=== PATIENT | female | born 1990 | race Caucasian/White ===

== ENCOUNTER 2019-03-15 15:58 | Emergency (ER) | payer OTHER ==
[2019-03-15 16:08] VITALS: BP 123/73; TEMP 98.5; BMI 23.5
--- NOTE | 2019-03-15 16:09 | PDOC ---
Rapid Medical Evaluation Time Seen by Provider: 03/15/19 16:03 Medical Evaluation: Allergies Allergy/AdvReac Type Severity Reaction Status Date / Time No Known Allergies Allergy Verified 03/15/19 16:04 03/15/19 16:04 I have performed a brief in-person evaluation of this patient. The patient presents with a chief complaint of: Dizziness w/ "sweet taste" in mouth 3 hrs ago. Also reports polyuria and nausea, no vomiting, abd pain or SOB. FS read HI at home today w/ large amount of ketones on home monitor. H/o IDDM, DKA Pertinent physical exam findings:Stable and well waqas I have ordered the following:labs The patient will proceed to the ED for further evaluation. Discharge Disposition - Diagnosis Hyperglycemia, Dizziness - Referrals - Patient Instructions - Post Discharge Activity
[2019-03-15] MEDS ORDERED: SODIUM CHLORIDE 0.9% 500 ML INFUS.BAG IV ONE (16:50)
--- NOTE | 2019-03-15 17:02 | PDOC ---
History of Present Illness - General Chief Complaint: Blood Sugar Problem Stated Complaint: HIGH BLOOD SUGAR Time Seen by Provider: 03/15/19 16:03 - History of Present Illness Initial Comments: 03/15/19 17:00 The patient is a 28 year old female with a PMH of Type I DM (diagnosed @ age 24 ) who presents stating she is not feeling well including nausea, having a funny taste in her mouth and increased urinary urgency. States she checked her BS at home and it read high and a test of her urine showed ketones. Patient has an insulin pump and follows with Dr. Sorensen (endocrinology) and Dr. Delacruz ( primary care). Notes she was evaluated at [facility] a few days previous for vaginal discharge and recieved a phone call today that she tested positive for gonorrhea and is requesting treatment. NKDA Surgical: none reported Social: denies toxic habits PMD: Dr. Bustillos Endocrinology: Dr. Sorensen As per EMR patient has not been evaluated in our ED on prior occasion. Past History - Past Medical History Allergies/Adverse Reactions: Allergies Allergy/AdvReac Type Severity Reaction Status Date / Time No Known Allergies Allergy Verified 03/15/19 16:04 COPD: No Diabetes: Yes (TYPE 1) - Immunization History Immunization Up to Date: Yes - Suicide/Smoking/Psychosocial Hx Smoking History: Never smoked Hx Alcohol Use: No Drug/Substance Use Hx: No Review of Systems - Review of Systems Constitutional: No: Chills, Fever HEENTM: No: Recent change in vision Respiratory: No: Cough, Shortness of Breath Cardiac (ROS): No: Chest Pain, Lightheadedness, Palpitations, Syncope ABD/GI: Yes: Nausea. No: Abdominal cramping *Physical Exam - Vital Signs Last Vital Signs Temp Pulse Resp BP Pulse Ox 98.5 F 107 H 18 123/73 99 03/15/19 16:04 03/15/19 16:04 03/15/19 16:04 03/15/19 16:04 03/15/19 16:04 - Physical Exam General Appearance: Yes: Nourished, Appropriately Dressed HEENT: positive: Normal Voice, Hearing Grossly Normal Neck: positive: Trachea midline, Supple Respiratory/Chest: positive: Lungs Clear, Normal Breath Sounds Cardiovascular: positive: S1, S2. negative: Edema, JVD, Murmur Vascular Pulses: Dorsalis-Pedis (R): 2+, Doralis-Pedis (L): 2+ Gastrointestinal/Abdominal: positive: Normal Bowel Sounds, Soft. negative: Guarding, Rebound, Tenderness, Hernia, Mass Musculoskeletal: negative: CVA Tenderness (R), CVA Tenderness (L) Extremity: positive: Normal Capillary Refill, Normal Inspection Integumentary: positive: Normal Color, Dry, Warm Neurologic: positive: paint maker II-XII NML intact, Fully Oriented, Alert ED Treatment Course - LABORATORY CBC & Chemistry Diagram: 03/15/19 17:02 03/15/19 17:02 - ADDITIONAL ORDERS Additional order review: Laboratory Results 03/15/19 16:53 POC Glucometer 396 03/15/19 16:53 POC Glucometer 396 Medical Decision Making - Medical Decision Making 03/15/19 17:05 28 year old female Type I DM with elevated blood sugar (>600) + nausea. Mildly tachycardic (HR 105), other VS unremarkable Repeat BS 396 in ED Will evaluate for DKA, and administer correction dose as per insulin pump (1 unit Humalog for every 70 units > 125) PLAN: Serum Acetone, CMP/CBC, VBG, UA; will treat for G/C as per patient request w/recent positive test Reassess 03/15/19 17:47 Patient changed insulin pump and administered correction dose G/C treatment pending UA shows 2+ glucose, 4+ ketones c/w hyperglycemia Trace Acetone, no AG - low clinical suspicion for DKA, cancelled VBG 03/15/19 18:54 VSS S/p correction dose repeat BS 230. At this time, patient safe for discharge home with instruction to repeat correction dose as necessary. Counseled to f/u with endocrinology and return to ED if hyperglycemia persists. *DC/Admit/Observation/Transfer Diagnosis at time of Disposition: Hyperglycemia - Discharge Dispostion Disposition: HOME Condition at time of disposition: Good Decision to Admit order: No - Referrals - Patient Instructions Printed Discharge Instructions: DI for Hyperglycemia -- Adult Additional Instructions: Please monitor your insulin closely and administer the correction dose as needed. Follow up with your inside sales account executive in the next 3 days. You were treated today for Gonorrhea and you should follow-up with [facility] as previously scheduled. Return to the Emergency Department if your blood sugar remains elevated or for any new/worsening/concerning symptoms. - Post Discharge Activity
[2019-03-15 17:20] LABS: BASO % 0.6 % (0-2.0); EOS % 0.3 % (0-4.5); HEMATOCRIT 39.1 % (32.4-45.2); HEMOGLOBIN 13.1 GM/dL (10.7-15.3); LYMPH % 25.1 % (8-40); MCH 27.6 pg (25.7-33.7); MCHC 33.4 g/dl (32.0-36.0); MEAN CELL VOLUME 82.7 fl (80-96); MEAN PLT VOLUME 8.6 fl (7.5-11.1); MONO % 8.3 % (3.8-10.2); NEUT % 65.7 % (42.8-82.8); PLATELET COUNT 217 K/MM3 (134-434); RBC 4.74 M/mm3 (3.60-5.2); RDW 13.5 % (11.6-15.6); WHITE BLOOD COUNT 4.8 K/mm3 (4.0-10.0)
[2019-03-15] MEDS ORDERED: AZITHROMYCIN 500 MG TABLET PO ONE (17:47)
--- NOTE | 2019-03-15 17:56 | PDOC ---
Documentation entered by Ivonne Gibbs SCRIBE, acting as scribe for Aster Bridges MD. Aster Bridges MD: This documentation has been prepared by the Sai darby Brenda, SCRIBE, under my direction and personally reviewed by me in its entirety. I confirm that the documentation accurately reflects all work, treatment, procedures, and medical decision making performed by me. Attending Attestation - Resident Resident Name: Maddison Lloyd - ED Attending Attestation I have performed the following: I have examined & evaluated the patient, The case was reviewed & discussed with the resident, I agree w/resident's findings & plan, Exceptions are as noted - HPI HPI: 03/15/19 17:28 The patient is a 28 year old female, with a significant PMH of IDDM (diagnosed at age 24 - has insulin pump) who presents to the emergency department complaining of feeling ill accompanied by nausea. The patient reports having a funny taste in her mouth and increased urinary urgency. As per patient, due to symptoms, she checked her blood sugar at home and noticed it to be high, and when testing her urine it showed Ketones. Patient reports experiencing vaginal discharge a few days ago, and followed up with [facility], who called her today to inform her that she has Gonorrhea. The patient denies chest pain, shortness of breath, headache and dizziness. Denies fever, chills, vomiting, diarrhea and constipation. Denies dysuria, frequency.. Allergies: NKA Social history: Not reported PCP: Dr. Delacruz Senior Cytotechnologist: Dr. Sorensen - Physicial Exam PE: GENERAL: Awake, alert, and fully oriented, in no acute distress HEAD: No signs of trauma EYES: PERRLA, EOMI, sclera anicteric, conjunctiva clear ENT: Auricles normal inspection, hearing grossly normal, nares patent, oropharynx clear without exudates. Moist mucosa NECK: Normal ROM, supple, no lymphadenopathy, JVD, or masses LUNGS: Breath sounds equal, clear to auscultation bilaterally. No wheezes, and no crackles HEART: Regular rate and rhythm, normal S1 and S2, no murmurs, rubs or gallops ABDOMEN: Soft, nontender, normoactive bowel sounds. No guarding, no rebound. No masses EXTREMITIES: Normal range of motion, no edema. No clubbing or cyanosis. No cords, erythema, or tenderness NEUROLOGICAL: Cranial nerves II through XII grossly intact. Normal speech, normal gait. Motor and sensation intact SKIN: Warm, dry, normal turgor, no rashes or lesions noted. - Medical Decision Making Pt states she changed her pump on arrival in the ED. Will have her self- administer her proper correction for the hyperglycemia to make sure that the insulin is working properly and it is not a bad vial. She takes 1 unit for every 70 points above 125. Pt gave herself 4U correction in ED. Will reassess after the correction. Will also treat her for gonorrhea, as she recently had a positive test.
[2019-03-15] MEDS ORDERED: AZITHROMYCIN 250 MG TABLET ONE (17:59)
[2019-03-15 18:07] LABS: URINE APPEARANCE CLEAR; URINE BILIRUBIN NEGATIVE (NEGATIVE); URINE COLOR YELLOW; URINE GLUCOSE (UA) 2+ (NEGATIVE); URINE KETONE 4+ (NEGATIVE); URINE LEUK ESTERASE NEGATIVE (NEGATIVE); URINE NITRITE NEGATIVE (NEGATIVE); URINE PROTEIN NEGATIVE (NEGATIVE); URINE UROBILINOGEN 0.2 mg/dL (0.2-1.0)
[2019-03-15 18:19] LABS: ALBUMIN 4.4 g/dl (3.4-5.0); BILIRUBIN,TOTAL 0.6 mg/dL (0.2-1); BLOOD UREA NITROGEN 20.1 mg/dL (7-18); CALCIUM 9.4 mg/dL (8.5-10.1); CREATININE 0.8 mg/dL (0.55-1.3); POTASSIUM 4.8 mmol/L (3.5-5.1); TOT PROT 7.4 g/dl (6.4-8.2)
[2019-03-15] MEDS ORDERED: cefTRIAXone SODIUM 1 GM VIAL ONE (19:41)
[2019-03-15] MEDS ORDERED: LIDOCAINE HCL 1%, 10 MG/ML (20ML VIAL) ONE (19:47)
[2019-03-15 20:15] VITALS: PULSE 94
== END 2019-03-15 20:34 | disposition home or self-care (01) ==
LOC: JER 15:58
PROC: 3E02329 Introduction of Other Anti-infective into Muscle, Percutaneous Approach (ICD-10-PCS; principal; 2019-03-15)
PROC: 3E0337Z Introduction of Electrolytic and Water Balance Substance into Peripheral Vein, Percutaneous Approach (ICD-10-PCS; 2019-03-15)
DX: E10.65 Type 1 diabetes mellitus with hyperglycemia (principal); Z79.4 Long term (current) use of insulin; A54.9 Gonococcal infection, unspecified
CPT/HCPCS: 36415; 80053; 81003; 82009; 82962; 84703; 85025; 99283-25

== ENCOUNTER 2019-03-16 00:46 | Emergency (ER) | payer OTHER ==
--- NOTE | 2019-03-16 01:17 | PDOC ---
History of Present Illness - General Stated Complaint: HIGH BLOOD SUGAR Time Seen by Provider: 03/16/19 01:14 - History of Present Illness Initial Comments: 03/16/19 01:15 CHIEF COMPLAINT: hyperglycemia HISTORY OF PRESENT ILLNESS: 28 yo F with hx of DM returns to ED after being discharged this evening with complaint that she is still not feeling right and is nauseous despite being treated in the ED for hyperglycemia. Patient reports cramping to her legs, which she felt prior to previous episode of DKA. She reports that she has been taking her insulin but her sugar does not appear to be trending down. 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 Patient states that she did use her insulin pump at home but again her sugar did not decrease. PCP: Dr. Monsalve Endocrinology: Dr. Sorensen PAST MEDICAL HISTORY: DMI FAMILY HISTORY: Denies SOCIAL HISTORY:Denies tobacco, alcohol, illicit drug use. SURGICAL HISTORY: Denies ALLERGIES: No known drug allergies REVIEW OF SYSTEMS General/Constitutional: Denies fever or chills. Denies weakness, weight change. HEENT: Denies change in vision. Denies ear pain or discharge. Denies sore throat. Cardiovascular: Denies chest pain or shortness of breath. Respiratory: Denies cough, wheezing, or hemoptysis. Gastrointestinal: Nausea. Denies vomiting, diarrhea or constipation. Denies rectal bleeding. Genitourinary: Denies dysuria, frequency, or change in urination. Musculoskeletal: Cramping to b/l legs. Skin and breasts: Denies rash or easy bruising. Neurologic: Denies headache, vertigo, loss of consciousness, or loss of sensation. PHYSICAL EXAM General Appearance: Well-appearing, appropriately dressed. No apparent distress , no intoxication. HEENT: EOMI, PERRLA, normal ENT inspection, normal voice, TMs normal, pharynx normal. No conjunctival pallor. No photophobia, scleral icterus. Neck: Supple. Trachea midline. No tenderness, rigidity, carotid bruit, stridor , lymphadenopathy, or thyromegaly. Respiratory/Chest: Lungs CTAB. No shortness of breath, chest tenderness, respiratory distress, accessory muscle use. No crackles, rales, rhonchi, stridor , wheezing, dullness Cardiovascular: RRR. S1, S2. No JVD, murmur, bradycardia, tachycardia. Vascular Pulses: Dorsalis-Pedis (R): 2+, Dorsalis-Pedis (L): 2+ Gastrointestinal/Abdominal: Normal bowel sounds. Abdomen soft, non-distended. No tenderness or rebound tenderness. No organomegaly, pulsatile mass, guarding , hernia, hepatomegaly, splenomegaly. Lymphatic: No adenopathy, tenderness. Musculoskeletal/Extremities: Normal inspection. FROM of all extremities, normal capillary refill. Pelvis Stable. No CVA tenderness. No tenderness to extremities, pedal edema, swelling, erythema or deformity. Integumentary: Appropriate color, dry, warm. No cyanosis, erythema, jaundice or rash Neurologic: forest firefighter II-XII intact. Fully oriented, alert. Appropriate mood/affect. Motor strength 5/5. No appreciable EOM palsy, facial droop or sensory deficit. Past History - Past Medical History Allergies/Adverse Reactions: Allergies Allergy/AdvReac Type Severity Reaction Status Date / Time No Known Allergies Allergy Verified 03/15/19 16:04 COPD: No Diabetes: Yes (TYPE 1) - Immunization History Immunization Up to Date: Yes - Suicide/Smoking/Psychosocial Hx Smoking History: Never smoked Hx Alcohol Use: No Drug/Substance Use Hx: No ED Treatment Course - LABORATORY CBC & Chemistry Diagram: 03/16/19 03:00 03/16/19 03:00 Medical Decision Making - Medical Decision Making 03/16/19 01:30 28 yo F with hx of DM returns to ED after being discharged this evening with complaint that she is still not feeling right and is nauseous despite being treated in the ED for hyperglycemia. -repeat cbc, cmp, acetone -fluids *DC/Admit/Observation/Transfer Diagnosis at time of Disposition: Hyperglycemia - Discharge Dispostion Disposition: HOME Condition at time of disposition: Stable - Referrals Referrals: ON STAFF,NOT [Primary Care Provider] - - Patient Instructions Printed Discharge Instructions: DI for Hyperglycemia -- Adult Additional Instructions: You were seen in the ER for high blood sugar. We did lab work on your blood, and we did not find any abnormalities concerning for a life-threatening condition. We gave you IV fluids, and you symptoms were under control by the end of your ER visit. You do not have DKA, but you are dehydrated and you need to drink plenty of fluids at home. After our assessment, we do not believe you are having a medical emergency at this time, and we believe you are safe to go home. Take your blood sugar measurement at lease once every 4 hours at home until you can follow up with your dairy science teacher, and take it whenever you have symptoms as well. Please follow up with your dairy science teacher and primary care provider in 1-3 days. Call their clinic as soon as possible, tell them you were seen in the ER, and tell them you need an appointment. If you have any new or worsening symptoms, especially another episode of fainting or feeling like you are about to faint, dizziness, palpitations, chest discomfort, shortness of breath, sweats, nausea, or other symptoms, please come back to the ER at any time (24 hours a day). Please hydrate well and eat well, and take any regular medications exactly as prescribed. If you are having severe or life threatening symptoms, or symptoms that make it unsafe to drive or have someone drive you, please call 911. - Post Discharge Activity
[2019-03-16] MEDS ORDERED: SODIUM CHLORIDE 0.9% 500 ML INFUS.BAG IV ONE (01:29)
[2019-03-16 03:01] VITALS: BP 108/69; PULSE 84; TEMP 98.1; BMI 27.3
--- NOTE | 2019-03-16 03:11 | PDOC ---
*Physical Exam - Vital Signs Last Vital Signs Temp Pulse Resp BP Pulse Ox 98.1 F 84 18 108/69 99 03/16/19 02:00 03/16/19 02:00 03/16/19 02:00 03/16/19 02:00 03/16/19 02:00 - Physical Exam Comments: 03/16/19 03:08 Patient's care was endorsed to me by Carmen Clayton at the end of her shift. Patient is a 28YOF with IDDM on insulin pump, who p/w nausea similar to her prior episodes of DKA. She was seen here in the ED this afternoon for blood sugar issues, and states now that her urine showed ketones and her BG was high at home. She is pending labs and serial BG then will decide dispo. ED Treatment Course - LABORATORY CBC & Chemistry Diagram: 03/16/19 03:00 03/16/19 03:00 - Medications Given in the ED: ED Medications Discontinued Medications Generic Name Dose Route Start Last Admin Trade Name Freq PRN Reason Stop Dose Admin Sodium Chloride 1,000 ml 03/16/19 01:29 03/16/19 02:40 Normal Saline - IV 03/16/19 01:30 1,000 ml ONCE ONE Administration Medical Decision Making - Medical Decision Making The patient's BUN is 30.1 at this time (compared with 20.1 on assessment the afternoon 03/15/19). However her Cr is not elevated and is unchanged from her assessment on 03/15/19. Her GFR is not reduced. On discussion with Dr. Morin this is likely dehydation and patient got 1 liter NS after labs drawn this visit. She had mild nausea afternoon of 03/15/19 but not currently nauseated, not vomiting, able to take PO liquids. Labs are not consistent with DKA or other serious sequelae of hyperglycemia. She after IVF she does not appear clinically dehydrated and she can take PO liquids in the ED. They are comfortable with this plan and will follow up with their PCP and teacher education instructor in 1-3 days. Specific return precautions are discussed and they will come back to the ER if necessary. *DC/Admit/Observation/Transfer Diagnosis at time of Disposition: Hyperglycemia - Discharge Dispostion Disposition: HOME Condition at time of disposition: Stable Decision to Admit order: No - Referrals Referrals: ON STAFF,NOT [Primary Care Provider] - - Patient Instructions Printed Discharge Instructions: DI for Hyperglycemia -- Adult Additional Instructions: You were seen in the ER for high blood sugar. We did lab work on your blood, and we did not find any abnormalities concerning for a life-threatening condition. We gave you IV fluids, and you symptoms were under control by the end of your ER visit. You do not have DKA, but you are dehydrated and you need to drink plenty of fluids at home. After our assessment, we do not believe you are having a medical emergency at this time, and we believe you are safe to go home. Take your blood sugar measurement at lease once every 4 hours at home until you can follow up with your teacher education instructor, and take it whenever you have symptoms as well. Please follow up with your teacher education instructor and primary care provider in 1-3 days. Call their clinic as soon as possible, tell them you were seen in the ER, and tell them you need an appointment. If you have any new or worsening symptoms, especially another episode of fainting or feeling like you are about to faint, dizziness, palpitations, chest discomfort, shortness of breath, sweats, nausea, or other symptoms, please come back to the ER at any time (24 hours a day). Please hydrate well and eat well, and take any regular medications exactly as prescribed. If you are having severe or life threatening symptoms, or symptoms that make it unsafe to drive or have someone drive you, please call 911. - Post Discharge Activity
[2019-03-16 03:17] LABS: HEMOGLOBIN 12.7 GM/dL (10.7-15.3); RDW 13.5 % (11.6-15.6); WHITE BLOOD COUNT 4.3 K/mm3 (4.0-10.0)
[2019-03-16 03:24] LABS: BASO % 0.9 % (0-2.0); EOS % 2.4 % (0-4.5); HEMATOCRIT 38.1 % (32.4-45.2); LYMPH % 34.1 % (8-40); MCH 27.5 pg (25.7-33.7); MCHC 33.4 g/dl (32.0-36.0); MEAN CELL VOLUME 82.2 fl (80-96); MEAN PLT VOLUME 8.9 fl (7.5-11.1); MONO % 8.8 % (3.8-10.2); NEUT % 53.8 % (42.8-82.8); PLATELET COUNT 251 K/MM3 (134-434); RBC 4.63 M/mm3 (3.60-5.2)
[2019-03-16 03:37] LABS: ANION GAP 7 MMOL/L (8-16); BLOOD UREA NITROGEN 30.1 mg/dL (7-18); CALCIUM 8.7 mg/dL (8.5-10.1); CHLORIDE 109 mmol/L (98-107); CO2 25 mmol/L (21-32); CREATININE 0.6 mg/dL (0.55-1.3); GLUCOSE,RANDOM 236 mg/dL (74-106); POTASSIUM 4.6 mmol/L (3.5-5.1); SODIUM 140 mmol/L (136-145)
[2019-03-16 04:07] LABS: ACETONE SERUM NEGATIVE (NEGATIVE)
== END 2019-03-16 04:28 | disposition home or self-care (01) ==
LOC: JER 00:46
PROC: 3E0337Z Introduction of Electrolytic and Water Balance Substance into Peripheral Vein, Percutaneous Approach (ICD-10-PCS; principal; 2019-03-16)
DX: E11.65 Type 2 diabetes mellitus with hyperglycemia (principal)
CPT/HCPCS: 36415; 80048; 82009; 85025; 99282-25

== ENCOUNTER 2019-08-26 17:59 | Emergency (ER) | payer OTHER ==
[2019-08-26 18:15] VITALS: TEMP 98; BMI 26.6
[2019-08-26] MEDS ORDERED: SODIUM CHLORIDE 1,000 ML IV STA (18:16)
--- NOTE | 2019-08-26 18:16 | PDOC ---
Rapid Medical Evaluation Time Seen by Provider: 08/26/19 18:14 Medical Evaluation: Allergies Allergy/AdvReac Type Severity Reaction Status Date / Time No Known Allergies Allergy Verified 03/15/19 16:04 08/26/19 18:14 CC: elevated BS>600 PE: Tachypnea. HR-115. Orders: DKA w/u Patient will proceed to ER for further evaluation. Discharge Disposition - Diagnosis Hyperglycemia due to type 1 diabetes mellitus - Referrals - Patient Instructions - Post Discharge Activity
[2019-08-26] MEDS ORDERED: LACTATED RINGERS SOLUTION 1000 ML INFUS.BAG IV ONE ×2 (18:33→19:49)
--- NOTE | 2019-08-26 19:07 | PDOC ---
History of Present Illness - General Chief Complaint: Blood Sugar Problem Stated Complaint: Blood Sugar Problem Time Seen by Provider: 08/26/19 18:14 History Source: Patient Exam Limitations: No Limitations - History of Present Illness Initial Comments: HPI: 28 y/o female presenting to [facility] ER complaining of feeling sick for the past hour. Further describes the sensation as fatigue, nausea, and thirst. Measured her BGL and found it was above 600. Also noted positive result on home ketone test. She self-administered 18 units of Humalog via her home pump. Repeated her BGL measurement and found it to be in the 500s, so she elected to seek emergency evaluation. Reports her home BGLs have ranged in the 100s and 200s over the past several days. No difficulty obtaining her insulin. Believes her pump is functioning correctly. Denies fevers, chills, chest pain, or SOB. Denies systemic infectious symptoms. Medical Hx: - T1DM Review of Systems: In addition to that documented in the HPI above, the additional ROS was obtained : Constitutional- Denies fevers or chills Head- Denies vision changes ENMT- Denies sore throat CV- Denies chest pain Resp- Denies SOB GI- Denies abdominal pain, vomiting, or diarrhea - Denies painful urination or hematuria MSK- Denies recent trauma Skin- Denies new rashes Neuro- Denies new numbness or tingling or weakness Endocrine- Denies polyuria Heme- Denies bleeding or bruising Physical Examination: Vital signs and nursing notes reviewed. Constitutional- Well-developed, well-nourished adult female in no acute distress or obvious discomfort. Observed ambulating unassisted through the department without difficulty. Examined in semi-fowlers position on hospital stretcher. Answered all questions appropriately and completely. Head- Normocephalic. No obvious external signs of trauma. Eyes- Sclerae white. Neck- Supple, trachea is midline. Cardiovascular / Chest- Tachycardic rate with regular rhythm. No murmur, rubs, clicks, or gallops. Peripheral pulses- radial pulses full. Respiratory- Breathing unlabored. Equal chest rise and fall. Clear to auscultation bilaterally. No stridor, no wheezing, no rhonchi. Gastrointestinal- abdomen is soft, non-tender, non-distended. Neuro- Alert and oriented x4. Moving all four extremities spontaneously. Skin- Warm, dry, and intact. Psych- Affect- appropriate. Mood- normal. Speech was non-labored, non- pressured. MDM: 28 y/o female presenting with fatigue, dry mouth, and hyperglycemia for the past hour. Afebrile. Vitals remarkable for tachycardia without hypotension. Afebrile. Physical exam as described above. UA revealed elevated glucose level but no ketones. Beta hydroxybutyrate not elevated. Normal bicarb. Low suspicion for DKA or infection. Suspect possible transient insulin pump error. Pt states she did not check her BGL this morning like she usually does. Likely mild dehydration given tachycardia and elevated urine specific gravity. HR and BGL trended downward after receiving 2L IVFB in the department and pt's self administered insulin bolus prior to arrival. 26 Aug 2019 19:49 PM Pt reassessed. Reports feeling fine. Denies worsening of her symptoms. 26 Aug 2019 21:00 PM Pt reassessed. Has completed 2L IVFB. Reports her symptoms have resolved. Discussed laboratory results with pt. Answered all questions. Provided return precautions. pt expressed verbal understanding and agreement with plan to discharge home with outpatient follow up. Provided copies of todays results. Pt states she has enough insulin at home. Requests referral for new floorworker distributor. Encouraged her to f/u with the physician that is familiar with her care, but also placed referral to another clinic. Nate Alvarez M.D., PGY2 Emergency Medicine Resident Past History - Past Medical History Allergies/Adverse Reactions: Allergies Allergy/AdvReac Type Severity Reaction Status Date / Time No Known Allergies Allergy Verified 08/26/19 18:16 Home Medications: Ambulatory Orders Insulin Pump [Insulin Pump - (Nf)] 1 each NR ASDIR PRN 06/08/19 COPD: No Diabetes: Yes (TYPE 1) - Immunization History Immunization Up to Date: Yes - Psycho Social/Smoking Cessation Hx Smoking History: Never smoked Have you smoked in the past 12 months: No Hx Alcohol Use: No Drug/Substance Use Hx: No *Physical Exam - Vital Signs Last Vital Signs Temp Pulse Resp BP Pulse Ox 98 F 115 H 18 136/83 98 08/26/19 18:12 08/26/19 18:12 08/26/19 18:12 08/26/19 18:12 08/26/19 18:12 Vital Signs - Vital Signs #1 Time: 19:07 Blood Pressure: 108/61 BP Location: Right Arm Blood Pressure Position: Sitting Pulse Rate: 106 Respiratory Rate: 20 O2 Sat by Pulse Oximetry (%): 99 Oxygen Delivery Method: Room Air ED Treatment Course - LABORATORY CBC & Chemistry Diagram: 08/26/19 18:55 08/26/19 18:55 Discharge - Discharge Information Problems reviewed: Yes Clinical Impression/Diagnosis: Hyperglycemia due to type 1 diabetes mellitus, Dehydration Condition: Improved Disposition: HOME - Admission No - Follow up/Referral Referrals: Richar Blevins MD [Staff Physician] - - Patient Discharge Instructions Patient Printed Discharge Instructions: DI for Hyperglycemia -- Adult Additional Instructions: You were seen today for fatigue, nausea, and an elevated blood sugar level. Your workup was normal today aside from the elevated blood sugar. You are not in DKA. Your symptoms were likely related to mild dehydration from the hyperglycemia. You should follow up with your floorworker distributor in the next two days to make sure you are healing. As you requested, I have included the name of another floorworker distributor. A copy of todays results are included in this packet. Take it to your follow up appointment so your doctor can review them. Go to the nearest emergency department for new or worsening symptoms. Print Language: SUDANESE - Post Discharge Activity Work/Back to School Note: Back to Work
[2019-08-26] MEDS ORDERED: ONDANSETRON 4 MG/2 ML VIAL IVPUSH ONE (19:22)
[2019-08-26 19:23] LABS: BASO % 0.8 % (0-2.0); EOS % 0.5 % (0-4.5); HEMATOCRIT 39.9 % (32.4-45.2); LYMPH % 21.3 % (8-40); MCHC 32.5 g/dl (32.0-36.0); MEAN CELL VOLUME 82.9 fl (80-96); MEAN PLT VOLUME 8.8 fl (7.5-11.1); MONO % 7.9 % (3.8-10.2); NEUT % 69.5 % (42.8-82.8); PLATELET COUNT 271 K/MM3 (134-434); RBC 4.81 M/mm3 (3.60-5.2); RDW 13.9 % (11.6-15.6); WHITE BLOOD COUNT 4.8 K/mm3 (4.0-10.0)
[2019-08-26 19:24] LABS: VENOUS PC02 38.8 mmHg (38-52)
[2019-08-26 19:28] LABS: PH,URINE 5.5 (5.0-8.0); URINE APPEARANCE CLEAR; URINE BILIRUBIN NEGATIVE (NEGATIVE); URINE COLOR YELLOW; URINE GLUCOSE (UA) 3+ (NEGATIVE); URINE KETONE NEGATIVE (NEGATIVE); URINE LEUK ESTERASE NEGATIVE (NEGATIVE); URINE NITRITE NEGATIVE (NEGATIVE); URINE PROTEIN NEGATIVE (NEGATIVE); URINE UROBILINOGEN 0.2 mg/dL (0.2-1.0)
[2019-08-26] MEDS ORDERED: ONDANSETRON 4 MG/2 ML VIAL ONE (19:30)
--- NOTE | 2019-08-26 19:31 | PDOC ---
Attending Attestation - Resident Resident Name: Nate Alvarez - ED Attending Attestation I have performed the following: I have examined & evaluated the patient, I agree w/resident's findings & plan - HPI HPI: 08/26/19 20:03 see resident hpi - Physicial Exam PE: 08/26/19 20:03 agree with resident exam - Medical Decision Making 08/26/19 20:30 28-year-old type I diabetic with elevated blood sugars and increased thirst Patient is not in DKA She does appear to be volume depleted after review of urinalysis and labs We will hydrate with 2 L normal saline Blood sugar recheck Patient did take 18 units of her insulin prior to arrival Will DC with recommendations for primary care follow-up Blood sugar recheck prior to DC
[2019-08-26 20:02] LABS: ALBUMIN 4.1 g/dl (3.4-5.0); BILIRUBIN,TOTAL 0.5 mg/dL (0.2-1); BLOOD UREA NITROGEN 18.1 mg/dL (7-18); CALCIUM 9.1 mg/dL (8.5-10.1); CREATININE 0.9 mg/dL (0.55-1.3); POTASSIUM 3.8 mmol/L (3.5-5.1); TOT PROT 7.4 g/dl (6.4-8.2)
[2019-08-26 20:19] LABS: VENOUS PO2 < 49 mmHg (28-48)
[2019-08-26 21:06] VITALS: BP 108/61; PULSE 106
--- NOTE | 2019-08-27 10:26 | EKG ---
Test Reason : Blood Pressure : / mmHG Vent. Rate : 094 BPM Atrial Rate : 094 BPM P-R Int : 118 ms QRS Dur : 078 ms QT Int : 328 ms P-R-T Axes : 040 -12 035 degrees QTc Int : 410 ms NORMAL SINUS RHYTHM NORMAL ECG WHEN COMPARED WITH ECG OF 08-JUN-2019 16:39, NO SIGNIFICANT CHANGE WAS FOUND Confirmed by MD Jones Edward ([id number]) on 08/27/2019 10:26:19 AM Referred By: Confirmed By:Catracho Jones MD
== END 2019-08-26 21:39 | disposition home or self-care (01) ==
LOC: JER 17:59
PROC: 3E033GC Introduction of Other Therapeutic Substance into Peripheral Vein, Percutaneous Approach (ICD-10-PCS; principal; 2019-08-26)
DX: E10.65 Type 1 diabetes mellitus with hyperglycemia (principal); Z79.4 Long term (current) use of insulin; Z96.41 Presence of insulin pump (external) (internal); E86.0 Dehydration
CPT/HCPCS: 36415; 80053; 81003; 82010; 82803; 82962; 84703; 85025; 87086; 93005; 93010; 99284-25

== ENCOUNTER 2020-03-26 22:34 | Emergency (ER) | payer OTHER ==
[2020-03-26 22:47] VITALS: TEMP 98.2; BMI 26.3
--- NOTE | 2020-03-26 23:29 | PDOC ---
History of Present Illness - General Chief Complaint: Blood Sugar Problem Stated Complaint: BLOOD SUGAR PROBLEM Time Seen by Provider: 03/26/20 23:29 History Source: Patient Exam Limitations: No Limitations - History of Present Illness Initial Comments: 03/26/20 23:51 HPI: This is a 29 y/o female with a PMH of IDDM presenting to the ED because she felt strange after she was exercising this evening and wanted to make sure she wasn't in DKA. She reports feeling bilateral throbbing lower back pain and blurry vision. She was last hospitalized for DKA in July of 2018. Her blood sugar was 300 at the time and she took 4 units of insulin. She also checked her urine for ketones which was positive. She denies any nausea/vomiting, abdominal pain, SOB, tachypnea, or dysuria. ROS: GENERAL/CONSTITUTIONAL: No fever/chills. No weakness. HEAD, EYES, EARS, NOSE AND THROAT: Yes blurry vision CARDIOVASCULAR: No chest pain or shortness of breath. RESPIRATORY: No cough, wheezing GASTROINTESTINAL: No nausea, vomiting GENITOURINARY: No dysuria, frequency MUSCULOSKELETAL: Bilateral lower back throbbing NEUROLOGIC: Yes mild headache, No loss of consciousness, or change in strength/sensation. HEMATOLOGIC/LYMPHATIC: No anemia, or history of blood clots. PMH: IDDM PSx: Denied Social Hx: Denied etoh or tobacco Meds: Insulin Allergies: Denied PE: GENERAL: Awake, alert, and fully oriented, in no acute distress. Laying in bed and conversational. HEAD: No signs of trauma EYES: PERRL, EOMI NECK: Normal ROM, supple LUNGS: Breath sounds equal, clear to auscultation bilaterally. No wheezes, and no crackles HEART: Regular rate and rhythm, normal S1 and S2, no murmurs, rubs or gallops ABDOMEN: Soft, nontender, normoactive bowel sounds. No CVA tenderness EXTREMITIES: Normal range of motion, no edema. NEUROLOGICAL: Normal speech, normal gait MDM: This is a 29 y/o female with a PMH of IDDM presenting to the ED because she is concerned that she is in DKA. Patient is well appearing, no abdominal pain, no SOB, no tachypnea - Doubt DKA but will check CBC, CMP, betahydroxybutyrate, VBG - Fingerstick glucose 68, will give juice - Urine preg, UA to check for UTI/infection 03/27/20 00:24 CBC WBC 7.1 K/mm3 (4.0-10.0) 03/27/20 00:02 RBC 5.28 M/mm3 (3.60-5.2) H 03/27/20 00:02 Hgb 14.4 GM/dL (10.7-15.3) 03/27/20 00:02 Hct 43.8 % (32.4-45.2) 03/27/20 00:02 MCV 83.0 fl (80-96) 03/27/20 00:02 MCH 27.3 pg (25.7-33.7) 03/27/20 00:02 MCHC 32.8 g/dl (32.0-36.0) 03/27/20 00:02 RDW 13.4 % (11.6-15.6) 03/27/20 00:02 Plt Count 272 K/MM3 (134-434) 03/27/20 00:02 MPV 8.3 fl (7.5-11.1) 03/27/20 00:02 Absolute Neuts (auto) 5.2 K/mm3 (1.5-8.0) 03/27/20 00:02 Neutrophils % 74.0 % (42.8-82.8) 03/27/20 00:02 Lymphocytes % 18.8 % (8-40) 03/27/20 00:02 Monocytes % 6.8 % (3.8-10.2) 03/27/20 00:02 Eosinophils % 0.1 % (0-4.5) 03/27/20 00:02 Basophils % 0.3 % (0-2.0) 03/27/20 00:02 Nucleated RBC % 0 % (0-0) 03/27/20 00:02 No leukocytosis, no anemia CMP Sodium 138 mmol/L (136-145) 03/27/20 00:02 Potassium 3.9 mmol/L (3.5-5.1) 03/27/20 00:02 Chloride 103 mmol/L (98-107) 03/27/20 00:02 Carbon Dioxide 24 mmol/L (21-32) 03/27/20 00:02 Anion Gap 12 MMOL/L (8-16) 03/27/20 00:02 BUN 11.8 mg/dL (7-18) 03/27/20 00:02 Creatinine 0.7 mg/dL (0.55-1.3) 03/27/20 00:02 Est GFR (CKD-EPI)AfAm 136.66 03/27/20 00:02 Est GFR (CKD-EPI)NonAf 117.91 03/27/20 00:02 POC Glucometer 68 UNITS (80-120) 03/27/20 00:20 Random Glucose 70 mg/dL (74-106) L 03/27/20 00:02 Calcium 10.1 mg/dL (8.5-10.1) 03/27/20 00:02 Total Bilirubin 0.7 mg/dL (0.2-1) 03/27/20 00:02 AST 15 U/L (15-37) 03/27/20 00:02 ALT 17 U/L (13-61) 03/27/20 00:02 Alkaline Phosphatase 76 U/L (45-117) 03/27/20 00:02 Total Protein 8.2 g/dl (6.4-8.2) 03/27/20 00:02 Albumin 4.6 g/dl (3.4-5.0) 03/27/20 00:02 Beta-Hydroxybutyrate 14.0 mg/dL (0.2-2.8) H 03/27/20 00:02 No anion gap, Beta-hydroxybutyrate elevated at 14 Patient reports that she is feeling better after drinking juice Will d/c with follow-up and return instructions Past History - Medical History Allergies/Adverse Reactions: Allergies Allergy/AdvReac Type Severity Reaction Status Date / Time No Known Allergies Allergy Verified 08/26/19 18:16 Home Medications: Ambulatory Orders Insulin Pump [Insulin Pump - (Nf)] 1 each NR ASDIR PRN 06/08/19 COPD: No Diabetes: Yes (TYPE 1) - Immunization History Immunization Up to Date: Yes - Psycho-Social/Smoking History Smoking History: Never smoked Have you smoked in the past 12 months: No - Substance Abuse Hx (Audit-C & DAST Scrn) How often the patient has a drink containing alcohol: Never Score: In Men: 4 or > Positive; In Women: 3 or > Positive: 0 Screen Result (Pos requires Nsg. Audit-10AR): Negative In the last yr the pt used illegal drug/Rx for NonMed reason: No Score: Yes response is considered Positive: 0 Screen Result (Positive result requires Nsg. DAST-10): Negative *Physical Exam - Vital Signs Last Vital Signs Temp Pulse Resp BP Pulse Ox 98.2 F 106 H 19 129/76 99 03/26/20 22:36 03/26/20 22:36 03/26/20 22:36 03/26/20 22:36 03/26/20 22:36 ED Treatment Course - LABORATORY CBC & Chemistry Diagram: 03/27/20 00:02 03/27/20 00:02 Discharge - Discharge Information Problems reviewed: Yes Clinical Impression/Diagnosis: Hypoglycemia Condition: Stable Disposition: HOME - Admission No - Follow up/Referral Referrals: ON STAFF,NOT [Primary Care Provider] - - Patient Discharge Instructions Patient Printed Discharge Instructions: DI for Hypoglycemia Additional Instructions: You were seen in the ED today for hypoglycemia. We checked your blood sugar while you were here and found it be 68. We gave you some juice and you reported that were feeling better. You can also follow-up with your PCP in the next 1-2 weeks. Please return to the ED if you experience a recurrence of any of your symptoms, or if you have any new or concerning symptoms. - Post Discharge Activity
--- NOTE | 2020-03-26 23:55 | PDOC ---
Attending Attestation - Resident Resident Name: Lilian Trinh - ED Attending Attestation I have performed the following: I have examined & evaluated the patient, The case was reviewed & discussed with the resident, I agree w/resident's findings & plan, Exceptions are as noted - HPI HPI: 03/27/20 01:23 See resident HPI - Physicial Exam PE: 03/27/20 01:23 Agree with documented exam - Medical Decision Making 03/27/20 01:23 Patient feeling back pain, noted ketones in urine via home test, was concerned for DKA f/u labs, including betahydroxybutyrate, ua, upreg dispo per clinical course Discharge - Discharge Information Problems reviewed: Yes Clinical Impression/Diagnosis: Hypoglycemia Condition: Stable Disposition: HOME - Follow up/Referral Referrals: ON STAFF,NOT [Primary Care Provider] - - Patient Discharge Instructions Patient Printed Discharge Instructions: DI for Hypoglycemia Additional Instructions: You were seen in the ED today for hypoglycemia. We checked your blood sugar while you were here and found it be 68. We gave you some juice and you reported that were feeling better. You can also follow-up with your PCP in the next 1-2 weeks. Please return to the ED if you experience a recurrence of any of your symptoms, or if you have any new or concerning symptoms. - Post Discharge Activity
[2020-03-27 00:17] LABS: BASO % 0.3 % (0-2.0); EOS % 0.1 % (0-4.5); HEMATOCRIT 43.8 % (32.4-45.2); HEMOGLOBIN 14.4 GM/dL (10.7-15.3); LYMPH % 18.8 % (8-40); MCH 27.3 pg (25.7-33.7); MCHC 32.8 g/dl (32.0-36.0); MEAN PLT VOLUME 8.3 fl (7.5-11.1); MONO % 6.8 % (3.8-10.2); PLATELET COUNT 272 K/MM3 (134-434); RBC 5.28 M/mm3 (3.60-5.2); RDW 13.4 % (11.6-15.6); WHITE BLOOD COUNT 7.1 K/mm3 (4.0-10.0)
[2020-03-27 00:18] LABS: VENOUS BASE EXCESS -1.6 mmol/L (-2-2); VENOUS O2 SATURATION 27.6 % (70-80); VENOUS PCO2 41.3 mmHg (38-52); VENOUS PH 7.374 (7.310-7.410)
[2020-03-27 00:39] LABS: ALBUMIN 4.6 g/dl (3.4-5.0); BILIRUBIN,TOTAL 0.7 mg/dL (0.2-1); BLOOD UREA NITROGEN 11.8 mg/dL (7-18); CALCIUM 10.1 mg/dL (8.5-10.1); CREATININE 0.7 mg/dL (0.55-1.3); POTASSIUM 3.9 mmol/L (3.5-5.1); TOT PROT 8.2 g/dl (6.4-8.2)
[2020-03-27 00:46] VITALS: BP 116/81; PULSE 94
[2020-03-27] MEDS ORDERED: ACETAMINOPHEN 325 MG TABLET (FP) PO ONE (01:31)
[2020-03-27 01:37] LABS: URINE APPEARANCE CLEAR; URINE BILIRUBIN NEGATIVE (NEGATIVE); URINE COLOR YELLOW; URINE GLUCOSE (UA) NEGATIVE (NEGATIVE); URINE KETONE 1+ (NEGATIVE); URINE LEUK ESTERASE NEGATIVE (NEGATIVE); URINE NITRITE NEGATIVE (NEGATIVE); URINE PROTEIN NEGATIVE (NEGATIVE); URINE UROBILINOGEN 0.2 mg/dL (0.2-1.0)
[2020-03-27 01:39] LABS: HCG,QUALITATIVE URINE Negative
[2020-03-27] MEDS ORDERED: ACETAMINOPHEN 325 MG TABLET (FP) ONE (01:46)
== END 2020-03-27 01:55 | disposition home or self-care (01) ==
LOC: JER 22:34
DX: E16.2 Hypoglycemia, unspecified (principal)
CPT/HCPCS: 36415; 80053; 81003; 82010; 82803; 82962; 84703; 85025; 99285-25

== ENCOUNTER 2020-05-31 12:46 | Emergency (ER) | payer OTHER ==
[2020-05-31 12:55] VITALS: BP 112/78; PULSE 90; TEMP 98; BMI 26.2
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
--- OUTSIDE RECORDS SUMMARY | 2020-05-31 13:41 | XMS ---
:1990 Author Organization [facility] Care Team Providers Name Role Phone Cedric Serrano MD, MPH Unavailable Unavailable Cedric Serrano MD, MPH Unavailable Unavailable Cedric Serrano MD, MPH Unavailable Unavailable Cedric Serrano MD, MPH Unavailable Unavailable Cedric Serrano MD, MPH Unavailable Unavailable Delta Cerrato Unavailable [email or web address] Delta Cerrato Unavailable [email or web address] Delta Cerrato Unavailable [email or web address] Delta Cerrato Unavailable [email or web address] Kovoor, Conrado Unavailable Unavailable Kovoor, Conrado Unavailable Unavailable Kovoor, Conrado Unavailable Unavailable Kovoor, Conrado Unavailable Unavailable Kovoor, Conrado Unavailable Unavailable Kovoor, Conrado Unavailable Unavailable Kovoor, Conrado Unavailable Unavailable Kovoor, Conrado Unavailable Unavailable Kovoor, Conrado Unavailable Unavailable Kovoor, Conrado Unavailable Unavailable Kovoor, Conrado Unavailable Unavailable Kovoor, Conrado Unavailable Unavailable Beasley, Autumn Unavailable Unavailable Beasley, Autumn Unavailable Unavailable Beasley, Autumn Unavailable Unavailable Beasley, Autumn Unavailable Unavailable Beasley, Autumn Unavailable Unavailable Beasley, Autumn Unavailable Unavailable Beasley, Autumn Unavailable Unavailable Beasley, Autumn Unavailable Unavailable Beasley, Autumn Unavailable Unavailable Beasley, Autumn Unavailable Unavailable Pope, Chandni C Unavailable Unavailable Pope, C Unavailable Unavailable Pope, C Unavailable Unavailable Pope, C Unavailable Unavailable Pope, C Unavailable Unavailable Pope, C Unavailable Unavailable Pope, C Unavailable Unavailable Pope, C Unavailable Unavailable Pope, C Unavailable Unavailable Andrew Unavailable [phone] Unavailable Unavailable Unavailable Unavailable Routen Unavailable Unavailable Routen Unavailable Unavailable ED STAFF PHYSICIAN Unavailable Unavailable Aszalos, Millicent Unavailable Unavailable Aszalos, Millicent Unavailable Unavailable Aszalos, Millicent Unavailable Unavailable Aszalos, Millicent Unavailable Unavailable Aszalos, Millicent Unavailable Unavailable Aszalos, Millicent Unavailable Unavailable Aszalos, Millicent Unavailable Unavailable Aszalos, Millicent Unavailable Unavailable Aszalos, Millicent Unavailable Unavailable ED STAFF PHYSICIAN Unavailable Unavailable Astrid Rodriguez MD Unavailable Unavailable Astrid Rodriguez MD Unavailable Unavailable Astrid Rodriguez MD Unavailable Unavailable Astrid Rodriguez MD Unavailable Unavailable Astrid Rodriguez MD Unavailable Unavailable Astrid Rodriguez MD Unavailable Unavailable Astrid Rodriguez MD Unavailable Unavailable Astrid Rodriguez MD Unavailable Unavailable Astrid Rodriguez MD Unavailable Unavailable Astrid Rodriguez MD Unavailable Unavailable Astrid Rodriguez MD Unavailable Unavailable Astrid Rodriguez MD Unavailable Unavailable Astrid Rodriguez MD Unavailable Unavailable Astrid Rodriguez MD Unavailable Unavailable Astrid Rodriguez MD Unavailable Unavailable Coloka-Kump, DO Unavailable Unavailable Coloka-Kump, DO Unavailable Unavailable Coloka-Kump, DO Unavailable Unavailable Coloka-Kump, DO Unavailable Unavailable Coloka-Kump, DO Unavailable Unavailable Coloka-Kump, DO Unavailable Unavailable Coloka-Kump, DO Unavailable Unavailable Coloka-Kump, DO Unavailable Unavailable Coloka-Kump, DO Unavailable Unavailable Coloka-Kump, DO Unavailable Unavailable Coloka-Kump, DO Unavailable Unavailable Coloka-Kump, DO Unavailable Unavailable Coloka-Kump, DO Unavailable Unavailable Coloka-Kump, DO Unavailable Unavailable Coloka-Kump, DO Unavailable Unavailable Coloka-Kump, DO Unavailable Unavailable Coloka-Kump, DO Unavailable Unavailable Ringstad Unavailable Unavailable Ringstad Unavailable Unavailable Ringstad Unavailable Unavailable Ringstad Unavailable Unavailable Ringstad Unavailable Unavailable Ringstad Unavailable Unavailable Ringstad Unavailable Unavailable Ringstad Unavailable Unavailable Ringstad Unavailable Unavailable Ringstad Unavailable Unavailable Ringstad Unavailable Unavailable Re-disclosure Warning The records that you are about to access may contain information from federally- assisted alcohol or drug abuse programs. If such information is present, then the following federally mandated warning applies: This information has been disclosed to you from records protected by federal confidentiality rules (42 CFR part 2). The federal rules prohibit you from making any further disclosure of this information unless further disclosure is expressly permitted by the written consent of the person to whom it pertains or as otherwise permitted by 42 CFR part 2. A general authorization for the release of medical or other information is NOT sufficient for this purpose. The Federal rules restrict any use of the information to criminally investigate or prosecute any alcohol or drug abuse patient.The records that you are about to access may contain highly sensitive health information, the redisclosure of which is protected by Article 27-F of the [facility] Public Health law. If you continue you may haveaccess to information: Regarding HIV / AIDS; Provided by facilities licensed or operated by the [facility] Office of Mental Health; or Provided by the [facility] Office for People With Developmental Disabilities. If such information is present, then the following [facility] mandated warning applies: This information has been disclosed to you from confidential records which are protected by state law. State law prohibits you from making any further disclosure of this information without the specific written consent of the person to whom it pertains, or as otherwise permitted by law. Any unauthorized further disclosure in violation of state law may result in a fine or retirement sentence or both. A general authorization for the release of medical or other information is NOT sufficient authorization for further disclosure. Allergies and Adverse Reactions Type Description Substance Reaction Status Data Source(s ) Propensity to Propensity to Propensity to NEXTG EN ([facility] adverse reactions adverse reactions adverse reactions [facility] (disorder) (disorder) (disorder) [place]) Family History Family Member Family Member Family Member Date of Description Data Source(s) Name Gender Status Status Unknown Male Problem 08/10/2018 NEXTGEN ([facility] ([facility]) 12:00:00 AM [facility] EST [place]) Unknown Male Problem 08/10/2018 NEXTGEN ([facility] (finding) 12:00:00 AM [facility]) Encounters Encounter Providers Location Date Indications Data Source(s ) Attender: [facility] 04/16/2020 NEXTGE N ([facility] 01:01:00 PM [facility] Medic sd EDT - Center) 04/16/2020 01:01:00 PM EDT Emergency Attender: JENNY ED H 03/27/2020 [facility] STAFF 05:54:00 PM Medical Senthil anguiano PHYSICIANAttender: EDT - STAFF ED STAFF 03/27/2020 PHYSICIANAdmitter: 09:18:00 PM JENNY ED STAFF EDT PHYSICIAN Patient discharged. Outpatient Attender: Rajeev Rossi 03/27/2020 [facility] Kristi 01:56:00 PM EDT Medical Center DOAdmitter: Rajeev Berry DOReferrer: Rajeev Berry DO PHONE E/M BY PHYS Attender: [facility] 03/27/2020 YUEREGENCY MERIDIAN ([facility] 11-20 MIN [facility] 01:56:00 PM EDT - [facility] 03/27/2020 Medical 01:56:00 PM EDT Center) Outpatient 03/27/2020 [facility] 01:50:00 PM EDT Medical C enter Outpatient 03/27/2020 [facility] 12:00:00 AM EDT Medical C enter Attender: [facility] 03/10/2020 YUE N ([facility] 12:28:00 PM EDT - [facility] 03/10/2020 Medical 12:28:00 PM EDT Center) Attender: [facility] 02/20/2020 NEX TGEN ([facility] 01:32:00 PM EDT - [facility] 02/20/2020 Medical 01:32:00 PM EDT Center) Attender: [facility] 12/24/2019 NEX TGEN ([facility] 03:46:00 PM EDT - [facility] 12/24/2019 Medical 03:46:00 PM EDT Center) Attender: [facility] 12/23/2019 NEX TGEN ([facility] 01:15:00 PM EDT - [facility] 12/23/2019 Medical 01:15:00 PM EDT Center) Attender: [facility] 11/27/2019 NEXTGEN ([facility] 10:08:00 AM EDT - [facility] 11/27/2019 Medical 10:08:00 AM EDT Center) Attender: [facility] 11/13/2019 NEXTGEN ([facility] 11:37:00 AM EDT - [facility] 11/13/2019 Medical 11:37:00 AM EDT Center) Attender: [facility] 11/12/2019 [facility] N ([facility] [place] 03:20:00 PM EDT - [facility] 11/12/2019 Medical 03:20:00 PM EDT Center) Attender: [facility] 11/05/2019 [facility] ([facility] 08:59:00 AM EDT - [facility] 11/05/2019 Medical 08:59:00 AM EDT Center) Attender: [facility] 10/31/2019 [facility] EN ([facility] 04:42:00 PM EST - [facility] 10/31/2019 Medical 04:42:00 PM EST Center) Outpatient 10/30/2019 [facility] 12:50:00 PM EST Medical C enter Outpatient 10/30/2019 [facility] 12:00:00 AM EST Medical C enter Attender: [facility] 10/29/2019 [facility] N ([facility] 11:27:00 AM EST - [facility] 10/29/2019 Medical 11:27:00 AM EST Center) Attender: [facility] 10/14/2019 [facility] EN ([facility] 02:39:00 PM EST - [facility] 10/14/2019 Medical 02:39:00 PM EST Center) Outpatient 10/01/2019 [facility] 02:36:00 PM EST Medical C enter Outpatient Attender: Autumn Rossi 10/01/2019 [facility] hattie GaleAdmitter: 11:17:00 AM EST Medic al Center Autumn BeasleyReferrer: Autumn Beasley OutpatientOFFICE/O Attender: [facility] 10/01/2019 [facility] ([facility] 11:17:00 AM EST - J osep EST 10/01/2019 Medical 11:17:00 AM EST Center) Outpatient 10/01/2019 [facility] 12:00:00 AM EST Medical C enter Attender: [facility] 09/27/2019 [facility] ([facility] 02:39:00 PM EST - [facility] 09/27/2019 Medical 02:39:00 PM EST Center) Attender: [facility] 09/03/2019 [facility] ([facility] 02:24:00 PM EST - [facility] 09/03/2019 Medical 02:24:00 PM EST Center) Attender: [facility] 08/15/2019 [facility] ([facility] 03:16:00 PM EST - [facility] 08/15/2019 Medical 03:16:00 PM EST Center) Outpatient 08/13/2019 [facility] 06:16:00 PM EST Medical C enter Outpatient 08/13/2019 [facility] 12:00:00 AM EST Medical C enter Attender: [facility] 08/12/2019 [facility] ([facility] 05:32:00 PM EST [facility] 08/12/2019 Medical 05:32:00 PM EST Center) Attender: [facility] 07/29/2019 [facility] ([facility] 06:20:00 PM [facility] - [facility] 07/29/2019 Medical 06:20:00 PM EST Center) Outpatient 07/22/2019 [facility] 05:47:00 PM EST Medical C enter Outpatient Attender: Autumn Rossi 07/22/2019 [facility] hattie GaleAdmitter: 04:45:00 PM EST Medic al Center Autumn BeasleyReferrer: Autumn Beasley OutpatientOFFICE/O Attender: [facility] 07/22/2019 [facility] ([facility] 04:45:00 PM EST - J osephs EST 07/22/2019 Medical 04:45:00 PM EST Center) Outpatient 07/22/2019 [facility] 12:00:00 AM EST Medical C enter Attender: [facility] 07/09/2019 [facility] ([facility] 06:37:00 PM EST - [facility] 07/09/2019 Medical 06:37:00 PM EST Center) Outpatient 07/08/2019 [facility] 12:10:00 PM EST Medical C enter Outpatient 07/08/2019 [facility] 12:00:00 AM EST Medical C enter Attender: [facility] 07/04/2019 [facility] ([facility] 12:45:00 PM EST - [facility] 07/04/2019 Medical 12:45:00 PM EST Center) Attender: [facility] 06/27/2019 NEX TGEN ([facility] 12:06:00 PM EDT - [facility] 06/27/2019 Medical 12:06:00 PM EDT Center) Attender: [facility] 01/02/2019 NEXTGE N ([facility] PM ED[facility] - [facility] 01/02/2019 Medical 12:06:00 PM EDT Center) Attender: [facility] 12/27/2018 NEXTGE N ([facility] 10:46:00 AM EDT - [facility] 12/27/2018 Medical 10:46:00 AM EDT Center) Attender: [facility] 12/13/2018 [place] MANDEEPGEN ([facility] 04:09:00 PM EDT [facility] 12/13/2018 Medical 04:09:00 PM EDT Center) Attender: [facility] 12/08/2018 NELL N ([facility] 10:39:00 AM EDT - [facility] 12/08/2018 Medical 10:39:00 AM EDT Center) Outpatient 2018 [facility] 03:36:00 PM EDT Medical C enter Outpatient 2018 [facility] 12:00:00 AM EDT Medical C enter Outpatient Attender: Autumn Rossi 11/23/2018 [facility] hattie GaleAdmitter: 01:55:00 PM EDT Medic al Center Autumn BeasleyReferrer: Autumn Beasley OutpatientOFFICE/O Attender: [facility] 11/23/2018 [facility]FON[facility] 01:55:00 PM EDT - J osep EST 11/23/2018 Medical 01:55:00 PM EDT Center) Outpatient 11/23/2018 [facility] 01:09:00 PM EDT Medical C enter Outpatient 11/23/2018 [facility] 12:00:00 AM EDT Medical C enter OutpatientOFFICE/O Attender: [facility] 10/04/2018 ALFONSO [facility] 09:06:00 AM EST - J osep EST 10/04/2018 Medical 09:06:00 AM EST Center) Attender: [facility] 09/06/2018 NELL N ([facility] 11:44:00 AM EST [facility] 09/06/2018 Medical 11:44:00 AM [facility]) Attender: [facility] 09/05/2018 NEX TGEN ([facility] 01:08:00 PM [facility] 09/05/2018 Medical 01:08:00 PM [facility]) OutpatientOFFICE/O Attender: [facility] 08/10/2018 NEXTGEN ([facility] VISIT, Zach PEREZ, MPH Center 10:43:00 AM [facility] 08/10/2018 Medical 10:43:00 AM [facility]) Immunizations Vaccine Date Status Description Data Source(s) Tdap 07/22/2019 12:00:00 AM completed Tdap NEXTG EN ([facility]) Source: New Immunization Record New in 2011. 07/22/2019 12:00:00 completed Influenza, Injectable , NEXTGEN ([facility] IIV4 [facility]) Source: New Immunization Record New in 2011. 10/04/2018 12:00:00 completed Influenza, Injectable , NEXTGEN ([facility] [address]) Source: New Immunization Record Medications Medication Brand Start Product Dose Route Administrative Pharmacy [facility] Indications Reaction Description Data Name Date Form Instructions Instructions Source(s) BASAGLAR 3 ML 04/16/ active 3 ML insulin NEXTGEN 100 UNIT/ML Insuli 2020 glargine 10 0 ([facility] KWIKPEN n 12:00: UNT/ML Pen Roque phs Glargi 00 AM Injector Medical ne 100 EDT [[facility]] [place]) UNT/ML Pen Inject or BASAGLAR 3 ML 03/10/ complet 3 ML insuli n NEXTGEN 100 UNIT/ML Insuli 2020 ed glargine 10 0 ([facility] KWIKPEN n 12:00: UNT/ML Pen Roque phs Glargi 00 AM In[facility]or [facility] [place]) UNT/ML Pen Inject or Blood blood- 12/23/ active For home NEXT GEN Glucose glucos 2020 blood ([facility] Monitoring e 12:00: glucose Roque phs kit meter 00 AM monitoring Medical EDT E10.9 Center) Blood blood 12/23/ active For blood NEXT GEN Glucose sugar 2020 glucose ([facility] Test strips diagno 12:00: testing 4 -5 Tessie stic 00 AM times daily, Medica l EDT Dx E10.9 Center) OneTouch blood complet Use to NEX TGEN Verio sugar 2020 ed measure ([facility] strips diagno 12:00: blood Tessie stic 00 AM glucose Medical EDT Center) Admelog 3 ML 11/12/ active 3 ML insulin NEXTGEN SoloStar Insuli 2020 lispro 100 (Sa int U-100 n 12:00: UNT/ML Pen Enrique s Insulin Lispro 00 AM Injector Medic al lispro 100 100 EDT [Admelog] Cent er) unit/mL UNT/ML subcutaneou Pen s pen Inject or BD pen 10/14/ active for use with NEX TGEN Ultra-Fine needle 2020 insulin pens ([facility] Magi Pen , 12:00: Tessie Needle 32 diabet 00 AM Medical gauge x ic EST Center) " Easy Touch needle 10/14/ active Use to N EXTGEN Hypodermic s2019 administer (Sa int Needle 30 dispos 12:00: insulin. Donya sephs gauge x able 00 AM Never reuse. Med ical /" EST Center) OneTouch blood 10/01/ complet Use to NEX TGEN Verio sugar 2020 ed measure ([facility] strips diagno 12:00: blood Tessie stic 00 AM glucose Medical EST Center) 3 ML Humalo 10/01/ active 3 ML insulin N EXTGEN Insulin g 2020 lispro 100 ([facility] Lispro 100 KwikPe 12:00: UNT/ML Pen Tessie UNT/ML Pen n 00 AM Injector Medi shad Injector (U-100 EST [Humalog] Cent er) [Humalog] ) Humalog Insuli KwikPen n 100 (U-100) unit/m Insulin 100 L unit/mL subcut subcutaneou aneous s OneTouch blood- 10/01/ complet Use to NE XTGEN Verio glucos 2020 ed measure ([facility] System e 12:00: blood Tessie meter 00 AM sugars. Medical EST Center) Easy Touch needle 10/01/ complet Use to NEXTGEN Hypodermic s, 2020 ed administer (Sa int Needle 30 dispos 12:00: insulin. Donya sephs gauge x able 00 AM Never reuse. Med ical /2" EST Center) Easy Touch lancet 10/01/ active Use to c heck NEXTGEN Safety s 2020 blood ([facility] Lancets 32 12:00: glucose. Dusty ephs gauge 00 AM Never reuse. Medic al EST Center) Isopropyl Alcoho 10/01/ active Use to NE XTGEN Alcohol 0.7 l 2020 sanitize (Hi nt ML/ML Wipes 12:00: finger Tessei Medicated 00 AM before Medical Pad Alcohol EST checking Cent er) Wipes blood sugars. Basaglar 3 ML 10/01/ complet 3 ML Insuli n NEXTGEN KwikPen Insuli 2020 ed Glargine 100 (S aint U-100 n 12:00: UNT/ML Pen Enrique s Insulin 100 Glargi 00 AM Injector M edical unit/mL (3 ne 100 EST [Basaglar] C enter) mL) UNT/ML subcutaneou Pen s Inject or 19 prenat .00 ORAL active chew 1 NEXTGEN 29 mg al 2018 {tabl tablet by ([facility] iron-1 mg no115/ 12:00: et} oral route Tessie chewable iron/f 00 AM every day Med ical tablet [facility]) acid 19 prenat .00 ORAL complet chew 1 NEXTGEN 29 mg al 2018 {tbl} ed tablet by ([facility] iron-1 mg no115/ 12:00: oral route Tessie chewable iron/f 00 AM every day Med ical tablet [facility]) acid Simethicone simeth 10/04/ active take 2 NEXTGEN 80 MG icone 2019 tablet by ([facility] Chewable 80 mg 12:00: oral route 3 Tessie Tablet chewab 00 AM times every Med ical simethicone le EST day prn Cente r) 80 mg tablet chewable tablet ferrous ferrou 10/04/ active take 1 NEXT GEN sulfate 325 s 2019 tablet by (Sa int MG Oral sulfat 12:00: oral route Donya sephs Tablet e 325 00 AM twice a day Medi shad ferrous mg (65 EST Center) sulfate 325 mg mg (65 mg iron) iron) tablet tablet insulin Levemi 09/05/ active insulin NEX TGEN detemir 100 r 2019 detemir 100 ( [facility] UNT/ML U-100 12:00: UNT/ML Tessie Injectable Insuli 00 AM Injectable Medical Solution n 100 EST Solution Center ) [Levemir] unit/m [Levemir] Levemir L U-100 subcut Insulin 100 aneous unit/mL soluti subcutaneou on s solution 3 ML Humalo 08/10/ active 3 ML Insulin N EXTGEN Insulin g 2018 Lispro 100 ([facility] Lispro 100 KwikPe 12:00: UNT/ML Pen Tessie UNT/ML Pen n 00 AM Injector Medi shad Injector (U-100 EST [Humalog] Cent er) [Humalog] ) Humalog Insuli KwikPen n 100 (U-100) unit/m Insulin 100 L unit/mL subcut subcutaneou aneous s insulin Levemi 08/10/ active insulin NEX TGEN detemir 100 r 2018 detemir 100 ( [facility] UNT/ML U-100 12:00: UNT/ML Tessie Injectable Insuli 00 AM Injectable Medical Solution n 100 EST Solution Center ) [Levemir] unit/m [Levemir] Levemir L U-100 subcut Insulin 100 aneous unit/mL soluti subcutaneou on s solution ferrous ferrou 08/10/ active take 1 NEXT GEN sulfate 325 s 2018 tablet by (Sa int MG Oral sulfat 12:00: oral route Donya sephs Tablet e 325 00 AM twice a day Medi shad ferrous mg (65 EST Center) sulfate 325 mg mg (65 mg iron) iron) tablet tablet Omnipod subcut active NEXTGEN Insulin aneous ([facility] Management insuli Tessie n [facility]) Humalog complet [facility] insulin ed [facility] ferrous ferrou 1 complet [facility] sulfate 325 s ed Tessie MG Delayed sulfat Medical Release e 325 Center Oral Tablet mg (65 ferrous mg sulfate 325 iron) mg (65 mg tablet iron) ,delay tablet,marialuisa ed yed release releas (/EC), e Ordered By: (/EC Desi )Katherine, Ordere MDDirection d By: s: 1 tablet Desi oral twice Katherine, a day MDDire ctions : 1 tablet oral twice a day 3 ML insuli 5 U complet HumaLOG [facility] Insulin n ed KwikPen Tessie Lispro 100 lispro Insulin Medi shad UNT/ML Pen ([facility] Injector OG [Humalog] KwikPe insulin n lispro Insuli (HumaLOG n) 100 KwikPen unit/m Insulin) L 100 unit/mL Insuli Insulin n Pen, Pen, Ordere Ordered By: d By: Desi Murphy, Katherine, MDDirection MDDire s: 5 unit ctions subcutaneou : 5 s three unit times a day subcut before aneous meals three times a day before meals Docusate docusa 2 complet [facility] Sodium 100 te ed Tessie MG Oral sodium Medical Capsule 100 mg Center docusate Capsul sodium 100 e, mg Capsule, Ordere Ordered By: d By: Katherine Chisholm, MDDirection MDDire s: 2 ctions capsule : 2 oral daily capsul at bedtime e oral daily at bedtim e 3 ML insuli 16 U complet Levemir [facility] insulin n ed FlexTouch Tessie detemir 100 detemi U-100 Insul n Medical UNT/ML Pen r Center Injector U-100 [Levemir] (Levem insulin ir detemir FlexTo U-100 uch (Levemir U-100 FlexTouch Insuln U-100 ) 100 Insuln) 100 unit/m unit/mL (3 L (3 mL) Insulin mL) Pen, Insuli Ordered By: n Pen, Desi Ordere genaro Murphy By: MDDirection Desi s: 16 unit Katherine, subcutaneou MDDire s twice a ctions day : 16 unit subcut aneous twice a day Insurance Providers Payer name Policy type Policy ID Covered Covered democrat's Policy P chance / Coverage democrat ID relationship to Tellez Inf ormation type tellez AFFINITY [id number] SP [id number] AFFINITY O [id number] 01 [id number] HEALTH PLAN MVP/HHP O [id number] 01 [id number] 100 AFFINITY [id number] SP [id number] MVP/HHP [id number] self [id number] MEDICAID [id number] SP [id number] AETNA USHC O [id number] 01 [id number] SELF PAY SP INSURANCE [employer]ET[employer] PPO [id number] SP [id number] Problems, Conditions, and Diagnoses Code Display Name Description Problem Type Effective Data Dates Source(s) 513125069 Abdominal bloating Abdominal bloating Problem [facility] ([facility]) [id number] Breast lump Breast lump Problem [facility] ([facility]) [id number] Psoriasis Psoriasis Problem NEXTREGENCY MERIDIAN ([facility]) [id number] Type 1 diabetes Type 1 diabetes Problem NEXT GEN mellitus mellitus ([facility]) Z79.4 half-way (current) [facility] (CURRENT) Diagnosis [facility] use of insulin USE OF INSULIN 05:54:00 PM Yoseph hs [facility] E11.65 Type 2 diabetes TYPE 2 DIABETES Diagnosis 03/27/2020 [facility] mellitus with MELLITUS WITH 05:54:00 PM [facility] hyperglycemia HYPERGLYCEMIA [facility] 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 05:54:00 PM [facility] Z71.89 Other specified OTHER SPECIFIED Diagnosis 03/27/2020 [facility] t counseling COUNSELING 01:56:00 PM [facility] E10.9 Type 1 diabetes TYPE 1 DIABETES Diagnosis 03/27/2020 [facility] t mellitus without MELLITUS WITHOUT 01:56:00 PM [facility] complications COMPLICATIONS [facility] Z11.4 Encounter for ENCOUNTER FOR Diagnosis 10/01/2019 [facility] screening for human SCREENING FOR HUMAN 11:17:0 0 AM [facility] immunodeficiency IMMUNODEFICIENCY [facility] dical virus [HIV] VIRUS Center Z11.3 Encounter for ENCNTR SCREEN FOR Diagnosis 10/01/2019 [facility] screening for INFECTIONS W SEXL 11:17:00 AM Dusty ayala infections with a MODE OF TRANSMISS [facility] sexual Cent er mode of transmission Z13.9 Encounter for ENCOUNTER FOR Diagnosis 10/01/2019 [facility] screening, SCREENING, 11:17:00 AM [facility] unspecified UNSPECIFIED [facility] R63.5 Abnormal weight gain ABNORMAL WEIGHT Diagnosis 10/01/2019 [facility] GAIN 11:17:00 AM [facility] R11.0 Nausea NAUSEA Diagnosis 10/01/2019 [facility] 11:17:00 AM [facility] G47.00 Insomnia, INSOMNIA, Diagnosis 10/01/2019 [facility] unspecified UNSPECIFIED 11:17:00 AM [facility] 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 LESION CYTO SMR 11:17:00 AM Dusty ayala lesion on cytologic CRVX (LGSIL) [facility] ical smear of cervix Center (LGSIL) Z68.26 Body mass index BODY MASS INDEX Diagnosis 07/22/2019 Jeaneth t (BMI) 26.0-26.9, (BMI) 26.0-26.9, 04:45:00 PM [facility] adult ADULT [facility] N60.02 Solitary cyst of SOLITARY CYST OF Diagnosis 07/22/2019 Sa int left breast LEFT BREAST 04:45:00 PM [facility] Z00.00 Encounter for ENCNTR FOR GENERAL Diagnosis 07/22/2019 Hi nt general adult ADULT MEDICAL EXAM 04:45:00 PM Donya garza medical examination W/O ABNORMAL EST Med ical without abnormal FINDINGS Center findings Z23 Encounter for ENCOUNTER FOR Diagnosis 07/22/2019 [facility] immunization IMMUNIZATION 04:45:00 PM [facility] Z68.25 Body mass index BODY MASS INDEX Diagnosis 11/23/2018 Jeaneth t (BMI) 25.0-25.9, (BMI) 25.0-25.9, 01:55:00 PM J osephs adult ADULT [facility] Z70.9 Sex counseling, SEX COUNSELING, Diagnosis 11/23/2018 Jeaneth t unspecified UNSPECIFIED 01:55:00 PM [facility] Z30.09 Encounter for other ENCOUNTER FOR OTH Diagnosis 9 [facility] general counseling GENERAL CNSL AND 01:55:00 PM [facility] and advice on ADVICE ON EDT Medical contraception CONTRACEPTION Center N94.6 Dysmenorrhea, DYSMENORRHEA, Diagnosis 11/23/2018 unspecified UNSPECIFIED 01:55:00 PM [facility] Diagnosis NEXTGEN ([facility]) Diagnosis NEXTGEN ([facility]) Diagnosis NEXTGEN ([facility]) Diagnosis NEXTGEN ([facility]) Diagnosis NEXTGEN ([facility]) Diagnosis NEXTGEN ([facility]) Diagnosis NEXTGEN ([facility]) Diagnosis NEXTGEN ([facility]) Surgeries/Procedures Procedure Description Date Indications Data Source(s) PHONE E/M BY PHYS 07-1703/27/2020 NEXT GEN ([facility] MIN 12:00:00 AM EDT [facility] - 03/27/2020 [place]) 12:00:00 AM EDT OFFICE/OUTPATIENT VISIT, 10/01/2019 NEX TGEN ([facility] EST 12:00:00 AM EST [facility] - 10/01/2019 [place]) 12:00:00 AM EST URINE TEST 10/01/2019 NEXTGEN ([facility] 12:00:00 AM EST [facility] - 10/01/2019 [place]) 12:00:00 AM EST OFFICE/OUTPATIENT VISIT, 07/22/2019 NEX TGEN ([facility] EST 12:00:00 AM EST [facility] 07/22/2019 Center) 12:00:00 AM EST ROUTINE VENIPUNCTURE 07/22/2019 NEXTGEN ([facility] 12:00:00 AM [facility] 07/22/2019 Center) 12:00:00 AM EST TDAP VACCINE >7 IM 07/22/2019 NEXTGEN ( [facility] 12:00:00 AM [facility] 07/22/2019 [place]) 12:00:00 AM EST Immunization 07/22/2019 NEXTGEN ([facility] Administration 12:00:00 AM EST [facility] dicsd - 07/22/2019 Center) 12:00:00 AM EST Influenza, Injectable, 3 07/22/2019 NEX TGEN ([facility] Yrs Or Older 12:00:00 AM [facility] 07/22/2019 [place]) 12:00:00 AM EST Immunization 07/22/2019 NEXTGEN ([facility] Administration 12:00:00 AM EST [facility] - 07/22/2019 [place]) 12:00:00 AM EST SPECIMEN HANDLING 07/22/2019 NEXTGEN (S aint 12:00:00 AM EST [facility] 07/22/2019 Center) 12:00:00 AM EST OFFICE/OUTPATIENT VISIT, 11/23/2018 [facility] TGEN [facility] 12:00:00 AM EDT [facility] - 11/23/2018 Center) 12:00:00 AM EDT OFFICE/OUTPATIENT VISIT, 10/04/2018 NEX TGEN ([facility] 12:00:00 AM EST [facility] - 10/04/2018 Center) 12:00:00 AM EST Influenza, Injectable, 3 10/04/2018 NEX TGEN ([facility] Yrs Or Older 12:00:00 AM EST [facility] - 10/04/2018 Center) 12:00:00 AM EST Immunization 10/04/2018 NEXTGEN ([facility] Administration 12:00:00 AM EST [facility] dicsd - 10/04/2018 Center) 12:00:00 AM EST OFFICE/OUTPATIENT VISIT, 08/10/2018 NEX TGEN ([facility] EST 12:00:00 AM EST [facility] - 08/10/2018 [place]) 12:00:00 AM EST Results ID Date Data Source Urinalysis.[id number] 03/27/2020 06:25:00 PM EDT Hi [facility] 0 Name Value Range Interpretation Description Data Sup porting Code Source(s) Document(s ) UNK CLEAR <content Saint styleCode="Joce Nunezs d">Urine Medical Clarity Center </content>JUAN DIEGO R <content styleCode="Irina lics"> (CLEAR )</content> Color of Urine YELLOW <content Saint styleCode="Joce Nunezs d">Color, Medical Urine Center </content>YELL OW <content styleCode="Irina lics"> (YELLOW )</content> Glucose NEGATIVE <content [facility] [Mass/volume] styleCode="Joce Kurtz in Urine by d">Urine Medical Test strip Glucose Center </content>>=10 00 MG/DL<content styleCode="Irina lics"> (NEGATIVE MG/DL)</conten t> Specific 1.015-1.02 Below low normal <content [facility] gravity of 5 styleCode="Joce Kurtz Urine by Test d">Urine Medical strip Specific Center [place] </content>1.01 0 L<content styleCode="Irina lics"> (1.015-1.025 )</content> Ketones NEGATIVE <content [facility] [Mass/volume] styleCode="Joce Kurtz in Urine by d">Urine Medical Test strip Ketone Center </content>15 MG/DL<content styleCode="Irina lics"> (NEGATIVE MG/DL)</conten t> UNK NEGATIVE <content [facility] styleCode="Joce Nunezs d">Urine Medical Bilirubin Center </content>NEGA TIVE <content styleCode="Irina lics"> (NEGATIVE )</content> pH of Urine by 4.5-8.0 <content [facility] Test strip styleCode="Joce Nunezs d">Urine pH Medical </content>6.0 Center <content styleCode="Irina lics"> (4.5-8.0 )</content> Hemoglobin NEGATIVE <content [facility] [Presence] in styleCode="Joce Kurtz Urine by Test d">Urine Blood Medical strip </content>NEGA Center TIVE <content styleCode="Irina lics"> (NEGATIVE )</content> Nitrite NEGATIVE <content [facility] [Presence] in styleCode="Joce Nunezs Urine by Test d">Urine Medical strip Nitrite Center </content>NEGA TIVE <content styleCode="Irina lics"> (NEGATIVE )</content> Protein NEGATIVE <content [facility] [Mass/volume] styleCode="Joce Tessie in Urine by d">Urine Medical Test strip Protein Center </content>NEGA TIVE MG/DL<content styleCode="Irina lics"> (NEGATIVE MG/DL)</conten t> Leukocyte NEGATIVE <content [facility] esterase styleCode="Joce Tessie [Presence] in d">Urine Medical Urine by Test Leukocyte Center strip </content>NEGA TIVE <content styleCode="Irina lics"> (NEGATIVE )</content> Urobilinogen 0.2-1.0 <content [facility] [Units/volume] styleCode="Joce Tessie in Urine by d">Urine Medical Test strip Urobilinogen Center </content>0.2 MG/DL<content styleCode="Irina lics"> (0.2-1.0 MG/DL)</conten t> ID Date Data Source HematologyRou.[id number] 03/27/2020 06:20:00 PM EDT [facility] 0400 Name Value Range Interpretation Description Data Sup porting Code Source(s) Document(s ) Hemoglobin 12.3-16. <content [facility] [Mass/volume] in 0 styleCode="Bold [facility] Blood ">Hemoglobin Medical </content>13.9 Center G/DL<content styleCode="Ital ics"> (12.3-16.0 G/DL)</content> Erythrocytes 4.0-5.1 <content [facility] [#/volume] in styleCode="Bold Tessie Blood by ">Red Blood Medical Automated count Cell Count Center </content>5.08 MCUMM<content styleCode="Ital ics"> (4.0-5.1 MCUMM)</content > Leukocytes 4.4-11.0 Below low normal <content [facility] [#/volume] in styleCode="Bold Tessie Blood by ">White Blood Medical Automated count Cell Count Center </content>4.38 KCUMM L<content styleCode="Ital ics"> (4.4-11.0 KCUMM)</content > Erythrocyte mean 80.0-100 <content [facility] corpuscular .0 styleCode="Bold Tessie volume [Entitic ">Mean Medical volume] by Corpuscular Center Automated count Volume </content>83.3 FL<content styleCode="Ital ics"> (80.0-100.0 FL)</content> Hematocrit 36.0-46. <content Saint [Volume 0 styleCode="Bold Tessie Fraction] of ">Hematocrit Medical Blood by </content>42.3 Center Automated count %<content styleCode="Ital ics"> (36.0-46.0 %)</content> Erythrocyte mean 26.0-34. <content [facility] corpuscular 0 styleCode="Bold Tessie hemoglobin ">Mean Medical [Entitic mass] Corposcular Center by Automated Hemoglobin count </content>27.4 PG<content styleCode="Ital ics"> (26.0-34.0 PG)</content> UNK 0 <content Saint styleCode="Bold Tessie ">Nucleated Red Medical Blood Cell Center </content>0.0 /100<content styleCode="Ital ics"> (0 /100)</content> Platelet mean 8.0-11.0 <content [facility] volume [Entitic styleCode="Bold Tessie volume] in Blood ">Mean Platelet Medical by Automated Volume Center count </content>10.0 FL<content styleCode="Ital ics"> (8.0-11.0 FL)</content> Erythrocyte 11.5-14. <content [facility] distribution 5 styleCode="Bold Tessie width [Ratio] by ">Red Cell Medical Automated count Distribution Center Width </content>12.6 %<content styleCode="Ital ics"> (11.5-14.5 %)</content> Platelets 130-400 <content [facility] [#/volume] in styleCode="Bold Tessie Blood by ">Platelet Medical Automated count Count Center </content>278 KCUMM<content styleCode="Ital ics"> (130-400 KCUMM)</content > Erythrocyte mean 32.0-37. <content [facility] corpuscular 0 styleCode="Bold Tessie hemoglobin ">Mean Corpus. Medical concentration Hgb Center [Mass/volume] by Concentration Automated count (MCHC) </content>32.9 G/DL<content styleCode="Ital ics"> (32.0-37.0 G/DL)</content> UNK 0.0 <content Saint styleCode="Bold Tessie ">Nucleated Red Medical Blood Cell Center Count </content>0.00 KCUMM<content styleCode="Ital ics"> (0.0 KCUMM)</content > ID Date Data Source GFR(Creatinine).[id number] 03/27/2020 06:20:00 PM EDT Hi [facility] 0-0400 Name Value Range Interpretation Code Description Data Diana rce(s) Supporting Document(s ) UNK > 60 <content [facility] styleCode="Bold"> Medical Cent er EGFR </content>156 GFR<content styleCode="Italic s"> (> 60 GFR)</content> ID Date Data Source Coagulation 03/27/2020 06:20:00 PM [facility] ical Center Rout.[id number] EDT Name Value Range Interpretation Description Data Sup porting Code Source(s) Document(s ) UNK 9.0-13.0 <content Saint styleCode="Bold" Tessie >Protime Medical </content>11.5 Center SEC<content styleCode="Itali cs"> (9.0-13.0 SEC)</content> INR in 0.80-1.2 <content [facility] Platelet poor 0 styleCode="Bold" Tessie plasma by >INR Medical Coagulation </content>1.04 Center assay #<content styleCode="Itali cs"> (0.80-1.20 #)</content> aPTT in 25.1-36. <content [facility] Platelet poor 5 styleCode="Bold" Tessie plasma by >Partial Medical Coagulation Thromboplastin Center assay Time </content>30.5 SEC<content styleCode="Itali cs"> (25.1-36.5 SEC)</content> ID Date Data Source [id number] 03/27/2020 06:20:00 PM EDT [facility] -0400 Name Value Range Interpretation Description Data Sup porting Code Source(s) Document(s ) UNK 4.2-5.8 Above high normal <content Saint styleCode="Bold Tessie ">Hemoglobin Medical A1C Center </content>10.1 % H<content styleCode="Ital ics"> (4.2-5.8 %)</content> UNK NEGATIVE <content Saint styleCode="Bold Tessie ">Acetone Medical </content>NEGAT Center NOEMY <content styleCode="Ital ics"> (NEGATIVE )</content> Lactate 0.7-2.0 <content Saint [Mass/volum styleCode="Bold Tessie e] in Serum ">Lactic Acid Medical or Plasma </content>1.1 Center MMOLL<content styleCode="Ital ics"> (0.7-2.0 MMOLL)</content > ID Date Data Source [facility].[id number] 03/27/2020 06:20:00 PM EDT [facility] Name Value Range Interpretation Description Data Sup porting Code Source(s) Document(s ) Sodium 137-145 Below low normal <content [facility] [Moles/volume] styleCode="Joce Tessie in Serum or d">Sodium Medical Plasma </content>135 Center MEQ/L L<content styleCode="Irina lics"> (137-145 MEQ/L)</conten t> Potassium 3.5-5.3 <content [facility] [Moles/volume] styleCode="Joce Tessie in Serum or d">Potassium Medical Plasma </content>4.3 Center MEQ/L<content styleCode="Irina lics"> (3.5-5.3 MEQ/L)</conten t> Chloride 98-107 <content [facility] [Moles/volume] styleCode="Joce Tessie in Serum or d">Chloride Medical Plasma </content>102 Center MEQ/L<content styleCode="Irina lics"> (98-107 MEQ/L)</conten t> Carbon 22-30 <content [facility] dioxide, total styleCode="Joce Kurtz [Moles/volume] d">Carbon Medical in Serum or Dioxide Center Plasma </content>25 MEQ/L<content styleCode="Irina lics"> (22-30 MEQ/L)</conten t> Glucose 74-106 Above high normal <content [facility] [Mass/volume] styleCode="Joce Nunezs in Serum or d">Glucose Medical Plasma </content>254 Center MG/DL H<content styleCode="Irina lics"> (74-106 MG/DL)</conten t> UNK 7-17 <content Saint styleCode="Joce Nunezs d">BUN Medical </content>9 Center MG/DL<content styleCode="Irina lics"> (7-17 MG/DL)</conten t> Creatinine 0.5-1.3 <content [facility] [Mass/volume] styleCode="Joce Nunezs in Serum or d">Creatinine Medical Plasma </content>0.5 Center MG/DL<content styleCode="Irina lics"> (0.5-1.3 MG/DL)</conten t> UNK > 60 <content [facility] styleCode="Joce Nunezs d">EGFR Medical </content>156 Center GFR<content styleCode="Irina lics"> (> 60 GFR)</content> Calcium 8.4-10.2 Above high normal <content [facility] [Mass/volume] styleCode="Joce Kurtz in Serum or d">Calcium Medical Plasma </content>10.4 Center MG/DL H<content styleCode="Irina lics"> (8.4-10.2 MG/DL)</conten t> ID Date Data Source CHMROUTINECCDA.[id number] 10/01/2019 12:56:00 PM EST Hi juan antonio [facility] -0500 Name Value Range Interpretation Code Description Data Diana rce(s) Supporting Document(s ) UNK 4.2-5.8 Above high normal <content Saint Nunez s styleCode="Bold" Medical Cente r >Hemoglobin A1C </content>9.2 % H<content styleCode="Itali cs"> (4.2-5.8 %)</content> ID Date Data Source LIPID.[id number] 07/22/2019 06:10:00 PM EST [facility] Name Value Range Interpretation Description Data Sup porting Code Source(s) Document(s ) Cholesterol -<200 Above high normal <content Saint [Mass/volume] in styleCode="Joce Tessie Serum or Plasma d">Cholesterol Medical </content>226 Center MG/DL H<content styleCode="Irina lics"> (-<200 MG/DL)</conten t> Triglyceride < 150 <content Saint [Mass/volume] in styleCode="Joce Tessie Serum or Plasma d">Triglycerid [facility] </content>86 MG/DL<content styleCode="Irina lics"> (< 150 MG/DL)</conten t> UNK < 100 Above high normal <content Saint styleCode="Joce Tessie d">LDL-Cholest [facility] </content>107 MG/DL H<content styleCode="Irina lics"> (< 100 MG/DL)</conten t> UNK > 60 <content Saint styleCode="Joce Tessie d">HDL- Medical Cholesterol Center </content>102 MG/DL<content styleCode="Irina lics"> (> 60 MG/DL)</conten t> ID Date Data Source Hormones.[id number] 07/22/2019 06:10:00 PM EST Jeaneth t [facility] Name Value Range Interpretation Description Data Sup porting Code Source(s) Document(s ) Thyrotropin 0.465-4. <content Saint [Units/volume] 68 styleCode="Joce Tessie in Serum or d">Thyroid Medical Plasma by Stimulating Center Detection Hormone limit <= 0.05 </content>1.35 mIU/L MIU/L<content styleCode="Irina lics"> (0.465-4.68 MIU/L)</conten t> ID Date Data Source CHMROUTINECCDA.[id number] 07/22/2019 06:10:00 PM EST Hi [facility] -0500 Name Value Range Interpretation Description Data Sup porting Code Source(s) Document(s ) UNK Not Established <content Saint styleCode="Bold Tessie ">Microalbumin Medical </content>0.7 Center mg/dL<content styleCode="Ital ics"> (Not Established mg/dL)</content > UNK 4.2-5.8 Above high normal <content Saint styleCode="Bold Tessie ">Hemoglobin Medical A1C Center </content>11.4 % H<content styleCode="Ital ics"> (4.2-5.8 %)</content> ID Date Data Source Liver 11/23/2018 03:34:00 PM EDT [facility] Profile.[id number] Name Value Range Interpretation Description Data Sup porting Code Source(s) Document(s ) Aspartate 14-36 <content Saint aminotransferase styleCode="Bold"> Yoseph hs [Enzymatic Aspartate Medical activity/volume] Aminotransferase Center in Serum or Plasma (AST) </content>16 IU/L<content styleCode="Italic s"> (14-36 IU/L)</content> Alkaline 38-126 <content Saint phosphatase styleCode="Bold"> Tessie [Enzymatic Alkaline Medical activity/volume] Phosphatase (ALP) Cente r in Serum or Plasma </content>52 IU/L<content styleCode="Italic s"> (38-126 IU/L)</content> Alanine 7-30 <content [facility] aminotransferase styleCode="Bold"> Yoseph hs [Enzymatic Alanine Medical activity/volume] Aminotransferase Center in Serum or Plasma (ALT) </content>9 IU/L<content styleCode="Italic s"> (7-30 IU/L)</content> Bilirubin.total 0.2-1.3 <content Saint [Mass/volume] in styleCode="Bold"> Yoseph hs Serum or Plasma Bilirubin Total Medical </content>0.4 Center MG/DL<content styleCode="Italic s"> (0.2-1.3 MG/DL)</content> Albumin 3.5-5.0 <content Saint [Mass/volume] in styleCode="Bold"> Yoseph hs Serum or Plasma Albumin Medical </content>4.0 Center G/DL<content styleCode="Italic s"> (3.5-5.0 G/DL)</content> ID Date Data Source Hormones.[id number] 11/23/2018 03:34:00 PM EDT [facility] Name Value Range Interpretation Description Data Sup porting Code Source(s) Document(s ) Thyroxine (T4) 0.78-2.1 <content Saint free 9 styleCode="Joce Tessie [Mass/volume] d">T4 Free Medical in Serum or </content>1.07 Center Plasma NG/DL<content styleCode="Irina lics"> (0.78-2.19 NG/DL)</conten t> Thyrotropin 0.465-4. <content Saint [Units/volume] 68 styleCode="Joce Tessie in Serum or d">Thyroid Medical Plasma by Stimulating Center Detection Hormone limit <= 0.05 </content>0.89 mIU/L 2 MIU/L<content styleCode="Irina lics"> (0.465-4.68 MIU/L)</conten t> ID Date Data Source HematologyRou.[id number] 11/23/2018 03:34:00 PM EDT [facility] 0400 Name Value Range Interpretation Description Data Sup porting Code Source(s) Document(s ) Leukocytes 4.4-11.0 <content Saint [#/volume] in styleCode="Bold Tessie Blood by ">White Blood Medical Automated count Cell Count Center </content>5.08 KCUMM<content styleCode="Ital ics"> (4.4-11.0 KCUMM)</content > Erythrocytes 4.0-5.1 <content Saint [#/volume] in styleCode="Bold Tessie Blood by ">Red Blood Medical Automated count Cell Count Center </content>4.60 MCUMM<content styleCode="Ital ics"> (4.0-5.1 MCUMM)</content > Hematocrit 36.0-46. <content Saint [Volume 0 styleCode="Bold Tessie Fraction] of ">Hematocrit Medical Blood by </content>39.1 Center Automated count %<content styleCode="Ital ics"> (36.0-46.0 %)</content> Erythrocyte mean 80.0-100 <content Saint corpuscular .0 styleCode="Bold Tessie volume [Entitic ">Mean Medical volume] by Corpuscular Center Automated count Volume </content>85.0 FL<content styleCode="Ital ics"> (80.0-100.0 FL)</content> Erythrocyte mean 26.0-34. <content [facility] corpuscular 0 styleCode="Bold Tessie hemoglobin ">Mean Medical [Entitic mass] Corposcular Center by Automated Hemoglobin count </content>27.0 PG<content styleCode="Ital ics"> (26.0-34.0 PG)</content> Hemoglobin 12.3-16. <content Saint [Mass/volume] in 0 styleCode="Bold Tessie Blood ">Hemoglobin Medical </content>12.4 Center G/DL<content styleCode="Ital ics"> (12.3-16.0 G/DL)</content> Erythrocyte mean 32.0-37. Below low normal <content Saint corpuscular 0 styleCode="Bold Tessie hemoglobin ">Mean Corpus. Medical concentration Hgb Center [Mass/volume] by Concentration Automated count (MCHC) </content>31.7 G/DL L<content styleCode="Ital ics"> (32.0-37.0 G/DL)</content> UNK 1.6-7.3 <content Saint styleCode="Bold Tessie ">Neutrophil Medical Count Center </content>3.23 KCUMM<content styleCode="Ital ics"> (1.6-7.3 KCUMM)</content > Neutrophils 36-66 <content Saint [#/volume] in styleCode="Bold Tessie Blood by ">Neutrophil Medical Automated count </content>63.5 Center %<content styleCode="Ital ics"> (36-66 %)</content> Erythrocyte 11.5-14. <content Saint distribution 5 styleCode="Bold Tessie width [Ratio] by ">Red Cell Medical Automated count Distribution Center Width </content>12.3 %<content styleCode="Ital ics"> (11.5-14.5 %)</content> Platelet mean 8.0-11.0 <content Saint volume [Entitic styleCode="Bold Tessie volume] in Blood ">Mean Platelet Medical by Automated Volume Center count </content>10.5 FL<content styleCode="Ital ics"> (8.0-11.0 FL)</content> Platelets 130-400 <content Saint [#/volume] in styleCode="Bold Tessie Blood by ">Platelet Medical Automated count Count Center </content>280 KCUMM<content styleCode="Ital ics"> (130-400 KCUMM)</content > Lymphocytes 24.0-44. <content Saint [#/volume] in 0 styleCode="Bold Tessie Blood by ">Lymphocyte Medical Automated count </content>27.6 Center %<content styleCode="Ital ics"> (24.0-44.0 %)</content> Eosinophils 0-5.0 <content Saint [#/volume] in styleCode="Bold Tessie Blood by ">Eosinophil Medical Automated count </content>1.6 Center %<content styleCode="Ital ics"> (0-5.0 %)</content> UNK 1.0-4.8 <content Saint styleCode="Bold Tessie ">Lymphocyte Medical Count Center </content>1.40 KCUMM<content styleCode="Ital ics"> (1.0-4.8 KCUMM)</content > Monocytes 3.0-10.0 <content [facility] [#/volume] in styleCode="Bold Tessie Blood by ">Monocyte Medical Automated count </content>6.5 Center %<content styleCode="Ital ics"> (3.0-10.0 %)</content> UNK 0.2-0.9 <content [facility] styleCode="Bold Tessie ">Monocyte Medical Count Center </content>0.33 KCUMM<content styleCode="Ital ics"> (0.2-0.9 KCUMM)</content > UNK 0.0-0.3 <content [facility] styleCode="Bold Tessie ">Basophil Medical Count Center </content>0.02 KCUMM<content styleCode="Ital ics"> (0.0-0.3 KCUMM)</content > UNK 0.0 <content [facility] styleCode="Bold Tessie ">Nucleated Red Medical Blood Cell Center Count </content>0.00 KCUMM<content styleCode="Ital ics"> (0.0 KCUMM)</content > UNK 0.0-0.6 <content [facility] styleCode="Bold Tessie ">Eosinophil Medical Count Center </content>0.08 KCUMM<content styleCode="Ital ics"> (0.0-0.6 KCUMM)</content > UNK 0 <content [facility] styleCode="Bold Tessie ">Nucleated Red Medical Blood Cell Center </content>0.0 /100<content styleCode="Ital ics"> (0 /100)</content> Basophils 0.0-1.0 <content [facility] [#/volume] in styleCode="Bold [facility] Blood by ">Basophil Medical Automated count </content>0.4 Center %<content styleCode="Ital ics"> (0.0-1.0 %)</content> UNK 0-0.1 <content [facility] styleCode="Bold Tessie ">Immature Medical Granulocyte Center Count </content>0.02 KCUMM<content styleCode="Ital ics"> (0-0.1 KCUMM)</content > UNK < 1 <content [facility] styleCode="Bold Tessie ">Immature Medical Granulocyte Center Ratio </content>0.4 %<content styleCode="Ital ics"> (< 1 %)</content> ID Date Data Source GFR(Creatinine).[id number] 11/23/2018 03:34:00 PM EDT [facility] 0-0400 Name Value Range Interpretation Code Description Data Diana rce(s) Supporting Document(s ) UNK > 60 <content [facility] styleCode="Bold"> Medical Cent er EGFR </content>159 GFR<content styleCode="Italic s"> (> 60 GFR)</content> ID Date Data Source CHMROUTINECCDA.[id number] 11/23/2018 03:34:00 PM EDT [facility] -0400 Name Value Range Interpretation Description Data Sup porting Code Source(s) Document(s ) UNK 2.3-3.5 <content [facility] styleCode="Bold Medical ">Globulin Center </content>2.6 G/DL<content styleCode="Ital ics"> (2.3-3.5 G/DL)</content> UNK 4.2-5.8 Above high normal <content [place] styleCode="Bold Medical ">Hemoglobin Center A1C </content>8.3 % H<content styleCode="Ital ics"> (4.2-5.8 %)</content> UNK >= 1.0 <content [facility] styleCode="Bold Medical ">AG Ratio Center </content>1.5 <content styleCode="Ital ics"> (>= 1.0 )</content> Protein 6.3-8.2 <content [facility] [Mass/volum styleCode="Bold Medical e] in Serum ">Total Protein Center or Plasma </content>6.6 G/DL<content styleCode="Ital ics"> (6.3-8.2 G/DL)</content> ID Date Data Source [facility].[id number] 11/23/2018 03:34:00 PM EDT [facility] Name Value Range Interpretation Description Data Sup porting Code Source(s) Document(s ) Sodium 137-145 <content [facility] [Moles/volume] in styleCode="Bold"> Roque phs Serum or Plasma Sodium Medical </content>142 Center MEQ/L<content styleCode="Italic s"> (137-145 MEQ/L)</content> Carbon dioxide, 22-30 <content [facility] total styleCode="Bold"> Tessie [Moles/volume] in Carbon Dioxide Medical Serum or Plasma </content>30 Center MEQ/L<content styleCode="Italic s"> (22-30 MEQ/L)</content> Potassium 3.5-5.3 <content [facility] [Moles/volume] in styleCode="Bold"> Roque phs Serum or Plasma Potassium Medical </content>4.0 Center MEQ/L<content styleCode="Italic s"> (3.5-5.3 MEQ/L)</content> UNK 7-17 <content [facility] styleCode="Bold"> Tessie BUN </content>12 Medical MG/DL<content Center styleCode="Italic s"> (7-17 MG/DL)</content> Chloride 98-107 <content [facility] [Moles/volume] in styleCode="Bold"> Roque phs Serum or Plasma Chloride Medical </content>107 Center MEQ/L<content styleCode="Italic s"> (98-107 MEQ/L)</content> Creatinine 0.5-1.3 <content [facility] [Mass/volume] in styleCode="Bold"> Yoseph hs Serum or Plasma Creatinine Medical </content>0.5 Center MG/DL<content styleCode="Italic s"> (0.5-1.3 MG/DL)</content> Aspartate 14-36 <content [facility] aminotransferase styleCode="Bold"> Yoseph hs [Enzymatic Aspartate Medical activity/volume] Aminotransferase Center in Serum or Plasma (AST) </content>16 IU/L<content styleCode="Italic s"> (14-36 IU/L)</content> Glucose 74-106 Above high <content [facility] [Mass/volume] in normal styleCode="Bold"> Yoseph hs Serum or Plasma Glucose Medical </content>110 Center MG/DL H<content styleCode="Italic s"> (74-106 MG/DL)</content> Calcium 8.4-10. <content [facility] [Mass/volume] in 2 styleCode="Bold"> Yoseph hs Serum or Plasma Calcium Medical </content>9.3 Center MG/DL<content styleCode="Italic s"> (8.4-10.2 MG/DL)</content> Alanine 7-30 <content [facility] aminotransferase styleCode="Bold"> Yoseph hs [Enzymatic Alanine Medical activity/volume] Aminotransferase Center in Serum or Plasma (ALT) </content>9 IU/L<content styleCode="Italic s"> (7-30 IU/L)</content> UNK > 60 <content [facility] styleCode="Bold"> Tessie EGFR Medical </content>159 Center GFR<content styleCode="Italic s"> (> 60 GFR)</content> Alkaline 38-126 <content [facility] phosphatase styleCode="Bold"> Tessie [Enzymatic Alkaline Medical activity/volume] Phosphatase (ALP) Cente r in Serum or Plasma </content>52 IU/L<content styleCode="Italic s"> (38-126 IU/L)</content> Bilirubin.total 0.2-1.3 <content [facility] [Mass/volume] in styleCode="Bold"> Yoseph hs Serum or Plasma Bilirubin Total Medical </content>0.4 Center MG/DL<content styleCode="Italic s"> (0.2-1.3 MG/DL)</content> Albumin 3.5-5.0 <content [facility] [Mass/volume] in styleCode="Bold"> Yoseph hs Serum or Plasma Albumin Medical </content>4.0 Center G/DL<content styleCode="Italic s"> (3.5-5.0 G/DL)</content> ID Date Data Source Liver Profile 11/23/2018 03:34:00 PM EDT [facility] Name Value Range Interpretation Description Data Sup porting Code Source(s) Document(s ) Aspartate 14-36 <content [facility] aminotransferase styleCode="Bold"> Yoseph hs [Enzymatic Aspartate Medical activity/volume] Aminotransferase Center in Serum or Plasma (AST) </content>31 IU/L<content styleCode="Italic s"> (14-36 IU/L)</content> Bilirubin.total 0.2-1.3 <content [facility] [Mass/volume] in styleCode="Bold"> Yoseph hs Serum or Plasma Bilirubin Total Medical </content>0.3 Center MG/DL<content styleCode="Italic s"> (0.2-1.3 MG/DL)</content> Alkaline 38-126 <content [facility] phosphatase styleCode="Bold"> Tessie [Enzymatic Alkaline Medical activity/volume] Phosphatase (ALP) Cente r in Serum or Plasma </content>48 IU/L<content styleCode="Italic s"> (38-126 IU/L)</content> Alanine 7-30 <content [facility] aminotransferase styleCode="Bold"> Yoseph hs [Enzymatic Alanine Medical activity/volume] Aminotransferase Center in Serum or Plasma (ALT) </content>20 IU/L<content styleCode="Italic s"> (7-30 IU/L)</content> Albumin 3.5-5.0 Below low <content [facility] [Mass/volume] in normal styleCode="Bold"> Yoseph hs Serum or Plasma Albumin Medical </content>3.4 Center G/DL L<content styleCode="Italic s"> (3.5-5.0 G/DL)</content> Albumin 3.5-5.0 <content [facility] [Mass/volume] in styleCode="Bold"> Yoseph hs Serum or Plasma Albumin Medical </content>4.0 Center G/DL<content styleCode="Italic s"> (3.5-5.0 G/DL)</content> Bilirubin.total 0.2-1.3 <content [facility] [Mass/volume] in styleCode="Bold"> Yoseph hs Serum or Plasma Bilirubin Total Medical </content>0.4 Center MG/DL<content styleCode="Italic s"> (0.2-1.3 MG/DL)</content> Alkaline 38-126 <content [facility] phosphatase styleCode="Bold"> Tessie [Enzymatic Alkaline Medical activity/volume] Phosphatase (ALP) Cente r in Serum or Plasma </content>52 IU/L<content styleCode="Italic s"> (38-126 IU/L)</content> Alanine 7-30 <content [facility] aminotransferase styleCode="Bold"> Yoseph hs [Enzymatic Alanine Medical activity/volume] Aminotransferase Center in Serum or Plasma (ALT) </content>9 IU/L<content styleCode="Italic s"> (7-30 IU/L)</content> Aspartate 14-36 <content [facility] aminotransferase styleCode="Bold"> Yoseph hs [Enzymatic Aspartate Medical activity/volume] Aminotransferase Center in Serum or Plasma (AST) </content>16 IU/L<content styleCode="Italic s"> (14-36 IU/L)</content> ID Date Data Source Hormones 11/23/2018 03:34:00 PM T [facility] Name Value Range Interpretation Description Data Sup porting Code Source(s) Document(s ) Thyrotropin 0.465-4. <content [facility] [Units/volume] 68 styleCode="Joce Tessie in Serum or d">Thyroid Medical Plasma by Stimulating Center Detection Hormone limit <= 0.05 </content>0.89 mIU/L 2 MIU/L<content styleCode="Riina lics"> (0.465-4.68 MIU/L)</conten t> Thyroxine (T4) 0.78-2.1 <content [facility] free 9 styleCode="Joce Tessie [Mass/volume] d">T4 Free Medical in Serum or </content>1.07 Center Plasma NG/DL<content styleCode="Irina lics"> (0.78-2.19 NG/DL)</conten t> ID Date Data Source HematologyRou 11/23/2018 03:34:00 PM EDT [facility] Name Value Range Interpretation Description Data Sup porting Code Source(s) Document(s ) Leukocytes 4.4-11.0 Below low normal <content [facility] [#/volume] in styleCode="Bold Tessie Blood by ">White Blood Medical Automated count Cell Count Center </content>3.34 KCUMM L<content styleCode="Ital ics"> (4.4-11.0 KCUMM)</content > Erythrocytes 4.0-5.1 <content [facility] [#/volume] in styleCode="Bold Tessie Blood by ">Red Blood Medical Automated count Cell Count Center </content>4.30 MCUMM<content styleCode="Ital ics"> (4.0-5.1 MCUMM)</content > Erythrocyte mean 80.0-100 <content [facility] corpuscular .0 styleCode="Bold Tessie volume [Entitic ">Mean Medical volume] by Corpuscular Center Automated count Volume </content>82.3 FL<content styleCode="Ital ics"> (80.0-100.0 FL)</content> Erythrocyte mean 26.0-34. <content [facility] corpuscular 0 styleCode="Bold Tessie hemoglobin ">Mean Medical [Entitic mass] Corposcular Center by Automated Hemoglobin count </content>26.7 PG<content styleCode="Ital ics"> (26.0-34.0 PG)</content> Hematocrit 36.0-46. Below low normal <content [facility] [Volume 0 styleCode="Bold Tessie Fraction] of ">Hematocrit Medical Blood by </content>35.4 Center Automated count % L<content styleCode="Ital ics"> (36.0-46.0 %)</content> Hemoglobin 12.3-16. Below low normal <content [facility] [Mass/volume] in 0 styleCode="Bold Tessie Blood ">Hemoglobin Medical </content>11.5 Center G/DL L<content styleCode="Ital ics"> (12.3-16.0 G/DL)</content> Erythrocyte mean 32.0-37. <content [facility] corpuscular 0 styleCode="Bold Tessie hemoglobin ">Mean Corpus. Medical concentration Hgb Center [Mass/volume] by Concentration Automated count (MCHC) </content>32.5 G/DL<content styleCode="Ital ics"> (32.0-37.0 G/DL)</content> Erythrocyte 11.5-14. <content [facility] distribution 5 styleCode="Bold Tessie width [Ratio] by ">Red Cell Medical Automated count Distribution Center Width </content>12.9 %<content styleCode="Ital ics"> (11.5-14.5 %)</content> Platelets 130-400 <content [facility] [#/volume] in styleCode="Bold Tessie Blood by ">Platelet Medical Automated count Count Center </content>180 KCUMM<content styleCode="Ital ics"> (130-400 KCUMM)</content > Platelet mean 8.0-11.0 Above high <content [facility] volume [Entitic normal styleCode="Bold Tessie volume] in Blood ">Mean Platelet Medical by Automated Volume Center count </content>11.4 FL H<content styleCode="Ital ics"> (8.0-11.0 FL)</content> Neutrophils 36-66 <content [facility] [#/volume] in styleCode="Bold Tessie Blood by ">Neutrophil Medical Automated count </content>43.7 Center %<content styleCode="Ital ics"> (36-66 %)</content> Lymphocytes 24.0-44. <content [facility] [#/volume] in 0 styleCode="Bold Tessie Blood by ">Lymphocyte Medical Automated count </content>43.1 Center %<content styleCode="Ital ics"> (24.0-44.0 %)</content> UNK 1.6-7.3 Below low normal <content [facility] styleCode="Bold Tessie ">Neutrophil Medical Count Center </content>1.46 KCUMM L<content styleCode="Ital ics"> (1.6-7.3 KCUMM)</content > UNK 1.0-4.8 <content [facility] styleCode="Bold Tessie ">Lymphocyte Medical Count Center </content>1.44 KCUMM<content styleCode="Ital ics"> (1.0-4.8 KCUMM)</content > Monocytes 3.0-10.0 <content [facility] [#/volume] in styleCode="Bold Tessie Blood by ">Monocyte Medical Automated count </content>9.0 Center %<content styleCode="Ital ics"> (3.0-10.0 %)</content> Eosinophils 0-5.0 <content [facility] [#/volume] in styleCode="Bold Tessie Blood by ">Eosinophil Medical Automated count </content>3.3 Center %<content styleCode="Ital ics"> (0-5.0 %)</content> UNK 0.2-0.9 <content [facility] styleCode="Bold Tessie ">Monocyte Medical Count Center </content>0.30 KCUMM<content styleCode="Ital ics"> (0.2-0.9 KCUMM)</content > UNK 0.0-0.6 <content [facility] styleCode="Bold Tessie ">Eosinophil Medical Count Center </content>0.11 KCUMM<content styleCode="Ital ics"> (0.0-0.6 KCUMM)</content > UNK 0.0-0.3 <content [facility] styleCode="Bold Tessie ">Basophil Medical Count Center </content>0.01 KCUMM<content styleCode="Ital ics"> (0.0-0.3 KCUMM)</content > Basophils 0.0-1.0 <content [facility] [#/volume] in styleCode="Bold Tessie Blood by ">Basophil Medical Automated count </content>0.3 Center %<content styleCode="Ital ics"> (0.0-1.0 %)</content> UNK 0 <content [facility] styleCode="Bold Tessie ">Nucleated Red Medical Blood Cell Center </content>0.0 /100<content styleCode="Ital ics"> (0 /100)</content> UNK 0.0 <content [facility] styleCode="Bold Tessie ">Nucleated Red Medical Blood Cell Center Count </content>0.00 KCUMM<content styleCode="Ital ics"> (0.0 KCUMM)</content > UNK < 1 <content [facility] styleCode="Bold Tessie ">Immature Medical Granulocyte Center Ratio </content>0.6 %<content styleCode="Ital ics"> (< 1 %)</content> UNK 0-0.1 <content [facility] styleCode="Bold Tessie ">Immature Medical Granulocyte Center Count </content>0.02 KCUMM<content styleCode="Ital ics"> (0-0.1 KCUMM)</content > Hematocrit 36.0-46. <content [facility] [Volume 0 styleCode="Bold Tessie Fraction] of ">Hematocrit Medical Blood by </content>39.1 Center Automated count %<content styleCode="Ital ics"> (36.0-46.0 %)</content> Hemoglobin 12.3-16. <content [facility] [Mass/volume] in 0 styleCode="Bold Tessie Blood ">Hemoglobin Medical </content>12.4 Center G/DL<content styleCode="Ital ics"> (12.3-16.0 G/DL)</content> Erythrocytes 4.0-5.1 <content [facility] [#/volume] in styleCode="Bold Tessie Blood by ">Red Blood Medical Automated count Cell Count Center </content>4.60 MCUMM<content styleCode="Ital ics"> (4.0-5.1 MCUMM)</content > Leukocytes 4.4-11.0 <content [facility] [#/volume] in styleCode="Bold Tessie Blood by ">White Blood Medical Automated count Cell Count Center </content>5.08 KCUMM<content styleCode="Ital ics"> (4.4-11.0 KCUMM)</content > Platelet mean 8.0-11.0 <content [facility] volume [Entitic styleCode="Bold Tessie volume] in Blood ">Mean Platelet Medical by Automated Volume Center count </content>10.5 FL<content styleCode="Ital ics"> (8.0-11.0 FL)</content> Platelets 130-400 <content [facility] [#/volume] in styleCode="Bold Tessie Blood by ">Platelet Medical Automated count Count Center </content>280 KCUMM<content styleCode="Ital ics"> (130-400 KCUMM)</content > Erythrocyte 11.5-14. <content [facility] distribution 5 styleCode="Bold Tessie width [Ratio] by ">Red Cell Medical Automated count Distribution Center Width </content>12.3 %<content styleCode="Ital ics"> (11.5-14.5 %)</content> Erythrocyte mean 32.0-37. Below low normal <content [facility] corpuscular 0 styleCode="Bold Tessie hemoglobin ">Mean Corpus. Medical concentration Hgb Center [Mass/volume] by Concentration Automated count (MCHC) </content>31.7 G/DL L<content styleCode="Ital ics"> (32.0-37.0 G/DL)</content> Erythrocyte mean 26.0-34. <content [facility] corpuscular 0 styleCode="Bold Tessie hemoglobin ">Mean Medical [Entitic mass] Corposcular Center by Automated Hemoglobin count </content>27.0 PG<content styleCode="Ital ics"> (26.0-34.0 PG)</content> Erythrocyte mean 80.0-100 <content [facility] corpuscular .0 styleCode="Bold Tessie volume [Entitic ">Mean Medical volume] by Corpuscular Center Automated count Volume </content>85.0 FL<content styleCode="Ital ics"> (80.0-100.0 FL)</content> Monocytes 3.0-10.0 <content [facility] [#/volume] in styleCode="Bold Tessie Blood by ">Monocyte Medical Automated count </content>6.5 Center %<content styleCode="Ital ics"> (3.0-10.0 %)</content> UNK 1.0-4.8 <content [facility] styleCode="Bold Tessie ">Lymphocyte Medical Count Center </content>1.40 KCUMM<content styleCode="Ital ics"> (1.0-4.8 KCUMM)</content > Lymphocytes 24.0-44. <content [facility] [#/volume] in 0 styleCode="Bold Tessie Blood by ">Lymphocyte Medical Automated count </content>27.6 Center %<content styleCode="Ital ics"> (24.0-44.0 %)</content> UNK 1.6-7.3 <content [facility] styleCode="Bold Tessie ">Neutrophil Medical Count Center </content>3.23 KCUMM<content styleCode="Ital ics"> (1.6-7.3 KCUMM)</content > Neutrophils 36-66 <content [facility] [#/volume] in styleCode="Bold Tessie Blood by ">Neutrophil Medical Automated count </content>63.5 Center %<content styleCode="Ital ics"> (36-66 %)</content> UNK 0 <content [facility] styleCode="Bold Tessie ">Nucleated Red Medical Blood Cell Center </content>0.0 /100<content styleCode="Ital ics"> (0 /100)</content> UNK 0.0-0.3 <content [facility] styleCode="Bold Tessie ">Basophil Medical Count Center </content>0.02 KCUMM<content styleCode="Ital ics"> (0.0-0.3 KCUMM)</content > Basophils 0.0-1.0 <content [facility] [#/volume] in styleCode="Bold Tessie Blood by ">Basophil Medical Automated count </content>0.4 Center %<content styleCode="Ital ics"> (0.0-1.0 %)</content> UNK 0.0-0.6 <content [facility] styleCode="Bold Tessie ">Eosinophil Medical Count Center </content>0.08 KCUMM<content styleCode="Ital ics"> (0.0-0.6 KCUMM)</content > Eosinophils 0-5.0 <content [facility] [#/volume] in styleCode="Bold Tessie Blood by ">Eosinophil Medical Automated count </content>1.6 Center %<content styleCode="Ital ics"> (0-5.0 %)</content> UNK 0.2-0.9 <content [facility] styleCode="Bold Tessie ">Monocyte Medical Count Center </content>0.33 KCUMM<content styleCode="Ital ics"> (0.2-0.9 KCUMM)</content > UNK < 1 <content [facility] styleCode="Bold Tessie ">Immature Medical Granulocyte Center Ratio </content>0.4 %<content styleCode="Ital ics"> (< 1 %)</content> UNK 0-0.1 <content [facility] styleCode="Bold Tessie ">Immature Medical Granulocyte Center Count </content>0.02 KCUMM<content styleCode="Ital ics"> (0-0.1 KCUMM)</content > UNK 0.0 <content [facility] styleCode="Bold Tessie ">Nucleated Red Medical Blood Cell Center Count </content>0.00 KCUMM<content styleCode="Ital ics"> (0.0 KCUMM)</content > ID Date Data Source GFR(Creatinine) 11/23/2018 03:34:00 PM EDT [facility] Name Value Range Interpretation Code Description Data Diana rce(s) Supporting Document(s ) UNK > 60 <content [facility] styleCode="Bold"> Medical Cent er EGFR </content>205 GFR<content styleCode="Italic s"> (> 60 GFR)</content> UNK > 60 <content [facility] styleCode="Bold"> Medical Cent er EGFR </content>159 GFR<content styleCode="Italic s"> (> 60 GFR)</content> ID Date Data Source CHMROUTINECCDA 11/23/2018 03:34:00 PM EDT [facility] Name Value Range Interpretation Description Data Sup porting Code Source(s) Document(s ) UNK >= 1.0 <content styleCode="Joce Tessie d">AG Ratio Medical </content>1.4 Center NM<content styleCode="Irina lics"> (>= 1.0 NM)</content> UNK 2.3-3.5 <content [facility] styleCode="Joce Tessie d">Globulin Medical </content>2.5 Center G/DL<content styleCode="Irnia lics"> (2.3-3.5 G/DL)</content > Magnesium 1.6-2.3 Below low normal <content [facility] [Mass/volume] styleCode="Joce Tessie in Serum or d">Magnesium Medical Plasma </content>1.5 Center MG/DL L<content styleCode="Irina lics"> (1.6-2.3 MG/DL)</conten t> Protein 6.3-8.2 Below low normal <content [facility] [Mass/volume] styleCode="Joce Tessie in Serum or d">Total Medical Plasma Protein Center </content>5.9 G/DL L<content styleCode="Irina lics"> (6.3-8.2 G/DL)</content > Phosphate 2.5-4.5 Above high normal <content [facility] [Mass/volume] styleCode="Joce Tessie in Serum or d">Phosphorus Medical Plasma </content>5.7 Center MG/DL H<content styleCode="Irina lics"> (2.5-4.5 MG/DL)</conten t> Protein 6.3-8.2 <content [facility] [Mass/volume] styleCode="Joce Nunezs in Serum or d">Total Medical Plasma Protein Center </content>6.6 G/DL<content styleCode="Irina lics"> (6.3-8.2 G/DL)</content > UNK 4.2-5.8 Above high normal <content [facility] styleCode="Joce Nunezs d">Hemoglobin Medical A1C Center </content>8.3 % H<content styleCode="Irina lics"> (4.2-5.8 %)</content> UNK 2.3-3.5 <content [facility] styleCode="Joce Nunezs d">Globulin Medical </content>2.6 Center G/DL<content styleCode="Irina lics"> (2.3-3.5 G/DL)</content > UNK >= 1.0 <content [facility] styleCode="Joce Nnuezs d">AG Ratio Medical </content>1.5 Center <content styleCode="Irina lics"> (>= 1.0 )</content> ID Date Data Source BMP 11/23/2018 03:34:00 PM EDT [facility] Name Value Range Interpretation Description Data Sup porting Code Source(s) Document(s ) Sodium 137-145 <content [facility] [Moles/volume] in styleCode="Bold"> Roque phs Serum or Plasma Sodium Medical </content>138 Center MEQ/L<content styleCode="Italic s"> (137-145 MEQ/L)</content> UNK 7-17 <content [facility] styleCode="Bold"> Tessie BUN </content>9 Medical MG/DL<content Center styleCode="Italic s"> (7-17 MG/DL)</content> Carbon dioxide, 22-30 <content [facility] total styleCode="Bold"> Tessie [Moles/volume] in Carbon Dioxide Medical Serum or Plasma </content>26 Center MEQ/L<content styleCode="Italic s"> (22-30 MEQ/L)</content> Potassium 3.5-5.3 <content [facility] [Moles/volume] in styleCode="Bold"> Roque phs Serum or Plasma Potassium Medical </content>4.1 Center MEQ/L<content styleCode="Italic s"> (3.5-5.3 MEQ/L)</content> Chloride 98-107 <content [facility] [Moles/volume] in styleCode="Bold"> Roque phs Serum or Plasma Chloride Medical </content>105 Center MEQ/L<content styleCode="Italic s"> (98-107 MEQ/L)</content> UNK > 60 <content [facility] styleCode="Bold"> Tessie EGFR Medical </content>205 Center GFR<content styleCode="Italic s"> (> 60 GFR)</content> Glucose 74-106 Above high <content [facility] [Mass/volume] in normal styleCode="Bold"> Yoseph hs Serum or Plasma Glucose Medical </content>197 Center MG/DL H<content styleCode="Italic s"> (74-106 MG/DL)</content> Creatinine 0.5-1.3 Below low <content [facility] [Mass/volume] in normal styleCode="Bold"> Yoseph hs Serum or Plasma Creatinine Medical </content>0.4 Center MG/DL L<content styleCode="Italic s"> (0.5-1.3 MG/DL)</content> Calcium 8.4-10. <content [facility] [Mass/volume] in 2 styleCode="Bold"> Yoseph hs Serum or Plasma Calcium Medical </content>9.0 Center MG/DL<content styleCode="Italic s"> (8.4-10.2 MG/DL)</content> Alanine 7-30 <content [facility] aminotransferase styleCode="Bold"> Yoseph hs [Enzymatic Alanine Medical activity/volume] Aminotransferase Center in Serum or Plasma (ALT) </content>20 IU/L<content styleCode="Italic s"> (7-30 IU/L)</content> Bilirubin.total 0.2-1.3 <content [facility] [Mass/volume] in styleCode="Bold"> Yoseph hs Serum or Plasma Bilirubin Total Medical </content>0.3 Center MG/DL<content styleCode="Italic s"> (0.2-1.3 MG/DL)</content> Aspartate 14-36 <content [facility] aminotransferase styleCode="Bold"> Yoseph hs [Enzymatic Aspartate Medical activity/volume] Aminotransferase Center in Serum or Plasma (AST) </content>31 IU/L<content styleCode="Italic s"> (14-36 IU/L)</content> Alkaline 38-126 <content [facility] phosphatase styleCode="Bold"> Tessie [Enzymatic Alkaline Medical activity/volume] Phosphatase (ALP) Cente r in Serum or Plasma </content>48 IU/L<content styleCode="Italic s"> (38-126 IU/L)</content> Albumin 3.5-5.0 Below low <content [facility] [Mass/volume] in normal styleCode="Bold"> Yoseph hs Serum or Plasma Albumin Medical </content>3.4 Center G/DL L<content styleCode="Italic s"> (3.5-5.0 G/DL)</content> Potassium 3.5-5.3 <content [facility] [Moles/volume] in styleCode="Bold"> Roque phs Serum or Plasma Potassium Medical </content>4.0 Center MEQ/L<content styleCode="Italic s"> (3.5-5.3 MEQ/L)</content> Sodium 137-145 <content [facility] [Moles/volume] in styleCode="Bold"> Roque phs Serum or Plasma Sodium Medical </content>142 Center MEQ/L<content styleCode="Italic s"> (137-145 MEQ/L)</content> Calcium 8.4-10. <content Saint [Mass/volume] in 2 styleCode="Bold"> Yoseph hs Serum or Plasma Calcium Medical </content>9.3 Center MG/DL<content styleCode="Italic s"> (8.4-10.2 MG/DL)</content> Glucose 74-106 Above high <content Saint [Mass/volume] in normal styleCode="Bold"> Yoseph hs Serum or Plasma Glucose Medical </content>110 Center MG/DL H<content styleCode="Italic s"> (74-106 MG/DL)</content> Creatinine 0.5-1.3 <content [facility] [Mass/volume] in styleCode="Bold"> Yoseph hs Serum or Plasma Creatinine Medical </content>0.5 Center MG/DL<content styleCode="Italic s"> (0.5-1.3 MG/DL)</content> UNK 7-17 <content Saint styleCode="Bold"> Tessie BUN </content>12 Medical MG/DL<content Center styleCode="Italic s"> (7-17 MG/DL)</content> Carbon dioxide, 22-30 <content Saint total styleCode="Bold"> Tessie [Moles/volume] in Carbon Dioxide Medical Serum or Plasma </content>30 Center MEQ/L<content styleCode="Italic s"> (22-30 MEQ/L)</content> Chloride 98-107 <content [facility] [Moles/volume] in styleCode="Bold"> Roque phs Serum or Plasma Chloride Medical </content>107 Center MEQ/L<content styleCode="Italic s"> (98-107 MEQ/L)</content> Albumin 3.5-5.0 <content [facility] [Mass/volume] in styleCode="Bold"> Yoseph hs Serum or Plasma Albumin Medical </content>4.0 Center G/DL<content styleCode="Italic s"> (3.5-5.0 G/DL)</content> Bilirubin.total 0.2-1.3 <content [facility] [Mass/volume] in styleCode="Bold"> Yoseph hs Serum or Plasma Bilirubin Total Medical </content>0.4 Center MG/DL<content styleCode="Italic s"> (0.2-1.3 MG/DL)</content> Alkaline 38-126 <content [facility] phosphatase styleCode="Bold"> Tessie [Enzymatic Alkaline Medical activity/volume] Phosphatase (ALP) Cente r in Serum or Plasma </content>52 IU/L<content styleCode="Italic s"> (38-126 IU/L)</content> Alanine 7-30 <content [facility] aminotransferase styleCode="Bold"> Yoseph hs [Enzymatic Alanine Medical activity/volume] Aminotransferase Center in Serum or Plasma (ALT) </content>9 IU/L<content styleCode="Italic s"> (7-30 IU/L)</content> Aspartate 14-36 <content [facility] aminotransferase styleCode="Bold"> Yoseph hs [Enzymatic Aspartate Medical activity/volume] Aminotransferase Center in Serum or Plasma (AST) </content>16 IU/L<content styleCode="Italic s"> (14-36 IU/L)</content> UNK > 60 <content [facility] styleCode="Bold"> [facility] EGFR Medical </content>159 Center GFR<content styleCode="Italic s"> (> 60 GFR)</content> ID Date Data Source Coagulation Rout 08/06/2018 05:40:00 AM [facility] Name Value Range Interpretation Description Data Sup porting Code Source(s) Document(s ) UNK 9.0-13.0 <content [facility] styleCode="Joce Tessie d">Protime Medical </content>10.9 Center SEC<content styleCode="Irina lics"> (9.0-13.0 SEC)</content> INR in 0.80-1.2 <content [facility] Platelet poor 0 styleCode="Joce [facility] plasma by d">INR Medical Coagulation </content>0.97 Center assay #<content styleCode="Irina lics"> (0.80-1.20 #)</content> ID Date Data Source Urinalysis 08/03/2018 05:20:00 PM [facility] Name Value Range Interpretation Description Data Sup porting Code Source(s) Document(s ) Ketones NEGATIVE <content [Mass/volum styleCode="Elvira Kurtz e] in Urine ">Urine Ketone Medical by Test </content>NEGAT Center strip NOEMY MG/DL<content styleCode="Ital ics"> (NEGATIVE MG/DL)</content > ID Date Data Source Microbiology 08/01/2018 04:45:00 AM [facility] Name Value Range Interpretation Code Description Data Diana rce(s) Supporting Document(s ) UNK <item><content Fayettes styleCode="Bold"> Medical [facility] er Culture Report </content>
<t able><tbody><tr>< td>Specimen Number:</td><td>[id number]</td></tr ><tr><td>Sample Collection Date/Time: </td><td> 4:45 AM</td></tr><tr>< td>Specimen Source:</td><td>B LOOD</td></tr><tr ><td>Culture Report:</td><td>N O GROWTH 5 DAYS </td></tr><tr><td >Blood Culture:</td><td> Collection Plate Date: 08/01/2018 05:10 </td></tr><tr><td >Culture Status:</td><td>F inal </td></tr></tbody ></table></item> UNK <item><content [employer] Tessie styleCode="Bold"> Medical [facility] er Culture Report </content>
<t able><tbody><tr>< td>Specimen Number:</td><td>[id number]</td></tr ><tr><td>Sample Collection Date/Time: </td><td> 4:45 AM</td></tr><tr>< td>Specimen Source:</td><td>B LOOD</td></tr><tr ><td>Blood Culture:</td><td> Collection Plate Date: 08/01/2018 05:10 </td></tr><tr><td >Culture Status:</td><td>F inal </td></tr><tr><td >Culture Report:</td><td>N O GROWTH 5 DAYS </td></tr></tbody ></table></item> UNK <item[facility] Culture Status </content>
<t able><tbody><tr>< td>Specimen Number:</td><td>[id number]</td></tr ><tr><td>Sample Collection Date/Time: </td><td> 8 4:45 AM</td></tr><tr>< td>Specimen Source:</td><td>B LOOD</td></tr><tr ><td>Blood Culture:</td><td> Collection Plate Date: 08/01/2018 05:10 </td></tr><tr><td >Culture Report:</td><td>N O GROWTH 5 DAYS </td></tr><tr><td >Culture Status:</td><td>F inal </td></tr></tbody ></table></item> UNK <item><content [facility] jimenezCode="Bold"> Medical [facility] er Culture Status </content>
<t able><tbody><tr>< td>Specimen Number:</td><td>[id number]</td></tr ><tr><td>Sample Collection Date/Time: </td><td> 8 4:45 AM</td></tr><tr>< td>Specimen Source:</td><td>B LOOD</td></tr><tr ><td>Culture Report:</td><td>N O GROWTH 5 DAYS </td></tr><tr><td >Culture Status:</td><td>F inal </td></tr><tr><td >Blood Culture:</td><td> Collection Plate Date: 08/01/2018 05:10 </td></tr></tbody ></table></item> Procedure Social History Code Duration Value Status Description Data Source(s ) Smoking 03/27/2020 Denies Ever completed Denies Ever Smoked [facility] Tessie 06:41:00 PM Smoked Medical Cente r EDT Smoking 03/27/2020 Denies Ever completed Denies Ever Smoked [facility] Tessie 06:28:00 PM Smoked Medical Cente r EDT Smoking 03/27/2020 Denies Ever completed Denies Ever Smoked [facility] Tessie 05:59:00 PM Smoked Medical Cente r EDT Caffeine Use 03/27/2020 completed coffee, 1 cup NEXTGEN ( Saint Details 12:00:00 AM [facility] EDT Center) Smoking 03/27/2020 Unknown if completed Unknown if ever NEXTGEN ( Saint 12:00:00 AM ever smoked smoked Tessie [facility] EDT [place]) Alcohol Use 10/01/2019 completed wine 1 glass NEXTGEN (Sa int Details 12:00:00 AM occasionally [facility] ical EST Center) 10/01/2019 Current completed Current non-smoker NEXTGE N (Saint 12:00:00 AM non-smoker [facility] EST [place]) Smoking 08/01/2018 Denies Ever completed Denies Ever Smoked [facility] Tessie 04:31:00 PM Smoked Medical Cente r EST Smoking 08/01/2018 Denies Ever completed Denies Ever Smoked [facility] Tessie 08:32:00 AM Smoked Medical Cente r EST Smoking 08/01/2018 Denies Ever completed Denies Ever Smoked [facility] Tessie 04:30:00 AM Smoked Medical Cente r EST Smoking 08/01/2018 Denies Ever completed Denies Ever Smoked [facility] Tessie 04:26:00 AM Smoked Medical Cente r EST Smoking Unknown if completed Unknown if ever [facility] Dusty ephs ever smoked smoked Medical Cente r Vital Signs ID Date Data Source UNK Name Value Range Interpretation Code Description Data Source(s) Body temperature 37.564280 37.957078 [facility] [place] Respiratory rate 18 /min 18 /min [facility] Oxygen saturation 98 % 98 % [facility] in Arterial blood Medical Center by Pulse oximetry Heart rate 97 /min 97 /min [facility] Diastolic blood 80 mm[Hg] 80 mm[Hg] [facility] pressure [facility] Systolic blood 128 mm[Hg] 128 mm[Hg] [facility] pressure Medical Center Body temperature 36.912115 36.424929 [facility] [place] Respiratory rate 17 /min 17 /min [facility] Oxygen saturation 99 % 99 % J osephs in [facility] by Pulse oximetry Heart rate 89 /min 89 /min [facility] Diastolic blood 80 mm[Hg] 80 mm[Hg] [facility] pressure [facility] Center Systolic blood 120 mm[Hg] 120 mm[Hg] [facility] Body weight 75.896911 kg 75.931750 kg [facility] Measured [facility] Center Body temperature 36.014727 36.593733 Isabelle [facility] Center Respiratory rate 18 /min 18 /min [facility] Oxygen saturation 98 % 98 % Saint Hurtado osephs in [facility] by Pulse oximetry Heart rate 102 /min 102 /min [facility] Body height 170.644847 170.504829 cm [facility] Diastolic blood 74 mm[Hg] 74 mm[Hg] [facility] pressure [facility] Center Systolic blood 123 mm[Hg] 123 mm[Hg] [facility] Body mass index 25.9 kg/m2 25.9 kg/m2 [facility] (BMI) [Ratio] Medical [facility] ter Oxygen saturation 99 % 99 % [facility]REGENCY [facility] ([facility] Arterial [facility] by Pulse oximetry Center) Body mass index 29.73 kg/m2 Overweight 29.73 kg/m2 [facility]EXTREGENCY [facility] ([facility] (BMI) [Ratio] [facility]) Respiratory rate 20 /min 20 /min [facility] ([facility]) Body temperature 36.94 Isabelle 36.94 Isabelle [facility] ([facility]) Heart rate 89 /min 89 /min [facility]REG[facility] ([facility]) Diastolic blood 78 mm[Hg] 78 mm[Hg] [facility] ( [facility]) Systolic blood 117 mm[Hg] 117 mm[Hg] NEXTREGENCY MERIDIAN (S aint pressure [facility]) Body weight 86.092 kg 86.092 kg [facility] ([facility]) Body height 170.18 cm 170.18 cm [facility] ([facility]) Oxygen saturation 98 % 98 % [facility] ([facility] in Arterial blood [facility] by Pulse oximetry Center) Body mass index 26.63 kg/m2 Overweight 26.63 kg/m2 NEXTREGENCY [facility] (Saint (BMI) [Ratio] [facility]) Respiratory rate 20 /min 20 /min NEXTGEN ([facility]) Body temperature 36.67 Isabelle 36.67 Isabelle NEXTGEN ([facility]) Heart rate 96 /min 96 /min NEXTGEN ([facility]) Diastolic blood 78 mm[Hg] 78 mm[Hg] NEXTGEN ( [facility]) Systolic blood 120 mm[Hg] 120 mm[Hg] NEXTGEN (S aint pressure [facility]) Body weight 77.111 kg 77.111 kg [facility]REGENCY [facility] ([facility]) Body height 170.18 cm 170.18 cm [facility]REG[facility] ([facility]) Oxygen saturation 99 % 99 % NEXTGEN ([facility] in Arterial blood [facility] by Pulse oximetry Center) Body mass index 25.75 kg/m2 Overweight 25.75 kg/m2 NEXTGEN ([facility] (BMI) [Ratio] [facility]) Respiratory rate 20 /min 20 /min NEXTGEN ([facility]) Body temperature 37.00 Isabelle 37.00 Isabelle [facility]REG[facility] ([facility]) Heart rate 79 /min 79 /min NEXTGEN ([facility]) Diastolic blood 72 mm[Hg] 72 mm[Hg] NEXTGEN ( [facility]) Systolic blood 113 mm[Hg] 113 mm[Hg] NEXTREGENCY [facility]IAN (S aint pressure [facility]) Body weight 74.571 kg 74.571 kg [facility]REG[facility] ([facility]) Body height 170.18 cm 170.18 cm [facility]REG[facility] ([facility]) Oxygen saturation 98 % 98 % NEXTGEN ([facility] in Arterial [facility] by Pulse oximetry Center) Respiratory rate 18 /min 18 /min NEXTGEN ([facility]) Body temperature 36.72 Isabelle 36.72 Isabelle NEXTREGENCY [facility] ([facility]) Heart rate 83 /min 83 /min NEXTGEN ([facility]) Diastolic blood 74 mm[Hg] 74 mm[Hg] [facility] ( [facility]) Systolic blood 111 mm[Hg] 111 mm[Hg] NEXTGEN (S aint pressure [facility]) Body weight 72.575 kg 72.575 kg [facility] ([facility] t [facility]) Oxygen saturation 99 % 99 % [facility] Arterial blood [facility] Pulse oximetry Center) Respiratory rate 16 /min 16 /min NEXTGEN ([facility]) Body temperature 36.83 Isabelle 36.83 Isabelle [facility] ([facility]) Heart rate 83 /min 83 /min [facility] ([facility]) Diastolic blood 61 mm[Hg] 61 mm[Hg] [facility] ( [facility] pressure [facility]) Systolic blood 101 mm[Hg] 101 mm[Hg] NEXTREGENCY MERIDIAN (S aint pressure [facility]) Body weight 71.668 kg 71.668 kg [facility] ([facility] t [facility]) Body weight 67.080686 kg 67.699196 kg [facility] Body height 170.932418 170.257541 cm [facility] Body mass index 23.31 kg/m2 23.31 kg/m2 [facility] (BMI) [Ratio] Medical [address] Body temperature 37.226880 37.435169 [facility] [place] Respiratory rate 16 /min 16 /min [facility] Heart rate 77 /min 77 /min [facility] Systolic blood 65 mm[Hg] 65 mm[Hg] [facility] Diastolic blood 104 mm[Hg] 104 mm[Hg] [facility] Body temperature 36.189659 36.437135 [facility] [place] Respiratory rate 20 /min 20 /min [facility] Heart rate 88 /min 88 /min [facility] Systolic blood 67 mm[Hg] 67 mm[Hg] [facility] Diastolic blood 107 mm[Hg] 107 mm[Hg] [facility] Body temperature 36.985762 36.560424 [facility] [place] Respiratory rate 18 /min 18 /min [facility] Heart rate 82 /min 82 /min [facility] Systolic blood 69 mm[Hg] 69 mm[Hg] [facility] Diastolic blood 109 mm[Hg] 109 mm[Hg] [facility] Medical Center Body weight 67.280706 kg 67.759126 kg [facility] Measured Medical Center Body height 170.585508 170.520604 cm [facility] Body mass index 23.31 kg/m2 23.31 kg/m2 Saint J osephs (BMI) [Ratio] Medical [facility] ter Body temperature 36.662669 36.011887 Isabelle [facility] Respiratory rate 20 /min 20 /min [facility] Heart rate 80 /min 80 /min [facility] Systolic blood 63 mm[Hg] 63 mm[Hg] [facility] Medical Center Diastolic blood 110 mm[Hg] 110 mm[Hg] [facility] Center Body temperature 36.456465 36.939867 [facility] [place] Respiratory rate 18 /min 18 /min [facility] Heart rate 70 /min 70 /min [facility] Systolic blood 60 mm[Hg] 60 mm[Hg] [facility] Center Diastolic blood 105 mm[Hg] 105 mm[Hg] [facility] Deprecated Oxygen 98 % 98 % Saint J osephs saturation in Medical [facility] ter Capillary blood by Oximetry Body weight 67.578472 kg 67.413513 kg [facility] Measured Medical Center Body height 170.402634 170.475195 cm [facility] Body mass index 23.31 kg/m2 23.31 kg/m2 Saint J osephs (BMI) [Ratio] Medical [facility] ter Deprecated Oxygen 99 % 99 % Saint J osephs saturation in Medical [facility] ter Capillary blood by Oximetry Body weight 67.640590 kg 67.818085 kg [facility] Body height 170.176756 170.506989 cm [facility] Body mass index 23.31 kg/m2 23.31 kg/m2 Saint J osephs (BMI) [Ratio] Medical [address] Deprecated Oxygen 99 % 99 % Saint J osephs saturation in Medical [facility] ter Capillary blood by Oximetry Deprecated Oxygen 98 % 98 % Saint J osephs saturation in Medical [facility] ter Capillary blood by Oximetry Body weight 67.758963 kg 67.192993 kg [facility] Me[facility] Body height 170.500087 170.707114 cm [facility] Body mass index 23.31 kg/m2 23.31 kg/m2 [facility] osep (BMI) [Ratio] Medical [address] Deprecated Oxygen 98 % 98 % [facility] osep saturation in Medical [address] Capillary blood by Oximetry Patient Treatment Plan of Care Planned Activity Planned Date Details Description Data Source (s) BASAGLAR 100 UNIT/ML 04/16/2020 12:00:00 NEXTGEN ([facility] KWIKPEN [facility]) BASAGLAR 100 UNIT/ML 03/10/2020 12:00:00 NEXTGEN ([facility]) Blood Glucose Test strips 12/24/2019 12:00:00 [facility] ([facility]) Blood Glucose Monitoring 12/24/2019 12:00:00 [facility] ([facility]) OneTouch Verio strips 12/23/2019 12:00:00 NEXTREGENCY MERIDIAN ([facility]) Admelog SoloStar U-100 11/13/2019 12:00:00 NEXTGEN ([facility] BD Ultra-Fine Magi Pen 10/14/2019 12:00:00 NEXTGEN (Saint Needle 32 gauge x 5/32" [facility]) Easy Touch Hypodermic 10/14/2019 12:00:00 NEXTGEN (Saint Needle 30 gauge x 1/2" [facility]) 3 ML Insulin Lispro 100 10/01/2019 12:00:00 NEXTGEN (Saint UNT/ML Pen Injector [facility] [Humalog] Center) Easy Touch Safety Lancets 10/01/2019 12:00:00 NEXTGEN (Saint 32 gauge [facility]) Isopropyl Alcohol 0.7 10/01/2019 12:00:00 NEXTGEN (Saint ML/ML Medicated Pad [facility]) Basaglar KwikPen U-100 10/01/2019 12:00:00 NEXTGEN (Saint Insulin 100 unit/mL (3 [facility] Medical ) subcutaneous Center) OneTouch Verio System 10/01/2019 12:00:00 NEXTGEN ([facility]) OneTouch Verio strips 10/01/2019 12:00:00 NEXTGEN ([facility]) Easy Touch Hypodermic 10/01/2019 12:00:00 NEXTGEN (Saint Needle 30 gauge x 1/2" [facility]) 19 29 mg iron-1 07/23/2019 12:00:00 NEXTGEN (Saint mg chewable tablet [facility]) ferrous sulfate 325 MG 10/04/2018 12:00:00 NEXTGEN (Saint Oral Tablet [facility]) 19 29 mg iron-1 10/04/2018 12:00:00 NEXTGEN (Saint mg chewable tablet [facility]) Simethicone 80 MG 10/04/2018 12:00:00 NEX TGEN ([facility] Chewable Tablet [facility]) insulin detemir 100 09/05/2018 12:00:00 N EXTGEN (Saint UNT/ML Injectable [facility] dical Solution [Levemir] [place]) ferrous sulfate 325 MG 08/10/2018 12:00:00 NEXTGEN (Saint Oral Tablet [facility]) 3 ML Insulin Lispro 100 08/10/2018 12:00:00 NEXTGEN (Saint UNT/ML Pen Injector [facility] [Humalog] [place]) insulin detemir 100 08/10/2018 12:00:00 N EXTGEN (Saint UNT/ML Injectable [facility] dical Solution [Levemir] [place]) Omnipod Insulin NEXTREGENCY MERIDIAN ([facility]) Humalog insulin pump [facility] Docusate Sodium 100 MG [facility] Oral Capsule Center 3 ML insulin detemir 100 [facility] UNT/ML Pen Injector Center [Levemir] 3 ML Insulin Lispro 100 [facility] UNT/ML Pen Injector Center [Humalog] ferrous sulfate 325 MG [facility] Delayed Release [facility] Tablet
== END 2020-05-31 13:40 | disposition home or self-care (01) ==
LOC: JER 12:46
DX: N89.8 Other specified noninflammatory disorders of vagina (principal); Z04.41 Encounter for examination and observation following alleged adult rape
CPT/HCPCS: 99282-25

== ENCOUNTER 2020-11-16 00:34 | Emergency (ER) | payer OTHER ==
[2020-11-16 01:11] VITALS: BP 121/83; PULSE 94; TEMP 98.9; BMI 26.6
[2020-11-16] MEDS ORDERED: DEXAMETHASONE 4 MG TABLET (FP) PO ONE (02:30)
[2020-11-16] MEDS ORDERED: DEXAMETHASONE LIQUID 0.5 MG/5 ML PO ONE (02:41)
[2020-11-16] MEDS ORDERED: DEXAMETHASONE SOD PHOSPHATE 10 MG/1 ML VIAL ONE (02:52)
== END 2020-11-16 03:07 | disposition home or self-care (01) ==
LOC: JER 00:34
DX: R21 Rash and other nonspecific skin eruption (principal); L25.9 Unspecified contact dermatitis, unspecified cause
CPT/HCPCS: 71046-TC-FY; 99283-25

== ENCOUNTER 2024-04-30 18:49 | Inpatient (IN) | payer OTHER ==
[2024-04-30] MEDS: SODIUM CHLORIDE 1,000 ML IV SCH (20:30)
[2024-04-30] MEDS: ELECTROLYTE-148 SOLN 500 ML IV ONE (21:00)
[2024-04-30] MEDS ORDERED: BUTORPHANOL TARTRATE 2 MG/ML VIAL IVPB PRN (21:17)
[2024-04-30] MEDS ORDERED: PROMETHAZINE HCL 25 MG/1 ML VIAL IVPB PRN (21:17)
[2024-04-30] MEDS ORDERED: INSULIN PUMP - PATIENTS OWN MED NR SCH (21:30)
[2024-04-30 21:41] VITALS: BMI 31.1
[2024-04-30 21:46] LABS: BASO % 0.1 % (0-2.0); EOS % 0.1 % (0-4.5); HEMATOCRIT 37.5 % (32.4-45.2); HEMOGLOBIN 12.2 GM/dL (10.7-15.3); LYMPH % 11.7 % (8-40); MCH 26.4 pg (25.7-33.7); MCHC 32.4 g/dl (32.0-36.0); MEAN CELL VOLUME 81.3 fl (80-96); MEAN PLT VOLUME 8.8 fl (7.5-11.1); NEUT % 81.1 % (42.8-82.8); PLATELET COUNT 181 10^3/uL (134-434); RBC 4.61 M/mm3 (3.60-5.2); RDW 14.8 % (11.6-15.6); WHITE BLOOD COUNT 9.6 K/mm3 (4.0-10.0)
[2024-04-30] MEDS ORDERED: FENTANYL/BUPIVACAINE/NS/PF - PCEA - 50 ML DISP.SYRIN EP ONE (21:48)
[2024-04-30 21:52] LABS: INR 0.86 (0.83-1.09); PROTHROMBIN TIME (PATIENT) 9.8 SEC (9.7-13.0)
[2024-04-30 21:55] LABS: ACTIVATED PTT 28.3 SECONDS (25.2-36.5)
[2024-04-30 21:58] LABS: POTASSIUM 3.8 mmol/L (3.5-5.1)
[2024-04-30 22:00] LABS: BLOOD UREA NITROGEN 8.4 mg/dL (7-18); CALCIUM 8.5 mg/dL (8.5-10.1)
[2024-04-30] MEDS: FENTANYL/BUPIVACAINE/NS/PF - PCEA - 50 ML DISP.SYRIN EP SCH (22:00)
[2024-04-30 22:03] LABS: CREATININE 0.5 mg/dL (0.55-1.3)
[2024-04-30 22:22] LABS: SYPHILIS W/ RPR CONF NON-REACTIVE (NONREACTIVE)
[2024-04-30] MEDS ORDERED: NALOXONE HCL 0.4 MG/ML VIAL IVPUSH PRN (22:32)
[2024-04-30 22:51] LABS: HIV INTERPRETATION NEGATIVE (NEGATIVE)
[2024-05-01] MEDS: ELECTROLYTE-148 SOLN 1,000 ML IV ONE
[2024-05-01] MEDS: SODIUM CHLORIDE 1,000 ML IV ONE (01:00)
[2024-05-01] MEDS ORDERED: FENTANYL/BUPIVACAINE/NS/PF - PCEA - 50 ML DISP.SYRIN EP ONE ×2 (02:34→06:09)
[2024-05-01] MEDS ORDERED: TERBUTALINE SULFATE 1 MG/1 ML VIAL SQ ONE (05:46)
[2024-05-01] MEDS: TERBUTALINE SULFATE 1 MG/1 ML VIAL SQ ONE (06:00)
[2024-05-01] MEDS ORDERED: PROPOFOL 20 ML ONE ×2 (07:50→08:14)
[2024-05-01] MEDS ORDERED: BUPIVACAINE HCL/PF 0.5% (5MG/ML) 10 ML VIAL ONE (08:08)
[2024-05-01] MEDS ORDERED: AZITHROMYCIN IVPB 500 MG/250 ML BAG IVPB ONE (08:13)
[2024-05-01] MEDS ORDERED: FENTANYL CITRATE/PF 50 MCG/ML VIAL ONE ×2 (08:17→08:45)
[2024-05-01] MEDS ORDERED: METHYLERGONOVINE MALEATE 0.2 MG/1 ML AMP IM PRN (08:30)
[2024-05-01 08:44] LABS: CORD PCO2 68.4 mmHg (30-78); CORD pH 7.013 (7.14-7.44)
[2024-05-01] MEDS ORDERED: IBUPROFEN 800 MG/8 ML IJ IVPB ONE (09:00)
[2024-05-01] MEDS ORDERED: ONDANSETRON 4 MG/2 ML VIAL IVPUSH PRN (09:01)
[2024-05-01] MEDS ORDERED: ACETAMINOPHEN INJECTION 100 ML ONE (09:03)
[2024-05-01] MEDS: ACETAMINOPHEN 1000 MG/100 ML BAG IVPB PRN (09:05)
[2024-05-01] MEDS ORDERED: LACTATED RINGERS SOLUTION 1,000 ML IV SCH (09:15)
[2024-05-01] MEDS ORDERED: OXYTOCIN 20 UNITS in 0.9% NS 20 UNIT/1,000 ML INFUS.BAG IV ONE (09:26)
[2024-05-01] MEDS ORDERED: HYDROmorphone *PCA* 10MG/50ML DISP.SYRIN ONE (09:30)
[2024-05-01] MEDS: IBUPROFEN 800 MG/8 ML IJ IVPB SCH (09:35)
[2024-05-01] MEDS: HYDROmorphone *PCA* 10MG/50ML DISP.SYRIN PCA SCH (09:35)
[2024-05-01 11:34] LABS: CORD HCO3 15.9 mmHg (20-29); CORD PCO2 76.3 mmHg (30-78)
[2024-05-01 11:39] LABS: CORD pH 6.936 (7.14-7.44)
[2024-05-01] MEDS: OXYTOCIN 20 UNITS in 0.9% NS 20 UNIT/1,000 ML INFUS.BAG IV SCH (12:03)
[2024-05-01] MEDS: CEFAZOLIN 1 GM in DEXTROSE 5%-WATER - 50 ML IVPB SCH ×2 (13:10→16:45)
[2024-05-01] MEDS ORDERED: oxyCODONE HCL 5 MG TABLET PO PRN (20:30)
[2024-05-01] MEDS: SIMETHICONE 80 MG TAB.CHEW (FP) PO PRN (21:20)
[2024-05-02] MEDS ORDERED: LACTATED RINGERS IV SCH (05:00)
[2024-05-02] MEDS ORDERED: DEXTROSE 5% IV SCH (05:00)
[2024-05-02] MEDS ORDERED: OXYTOCIN IV SCH (05:00)
[2024-05-02 08:28] LABS: BASO % 0.2 % (0-2.0); EOS % 0.3 % (0-4.5); HEMATOCRIT 30.7 % (32.4-45.2); LYMPH % 11.9 % (8-40); MCH 26.4 pg (25.7-33.7); MCHC 32.6 g/dl (32.0-36.0); MEAN CELL VOLUME 81.1 fl (80-96); MEAN PLT VOLUME 8.7 fl (7.5-11.1); MONO % 4.9 % (3.8-10.2); NEUT % 82.7 % (42.8-82.8); PLATELET COUNT 161 10^3/uL (134-434); RBC 3.78 M/mm3 (3.60-5.2); RDW 15.3 % (11.6-15.6)
[2024-05-02] MEDS ORDERED: BISACODYL 10 MG SUPP.RECT RC PRN (08:30)
[2024-05-02] MEDS: IBUPROFEN 600 MG TABLET (FP) PO SCH (09:58)
[2024-05-02] MEDS: ACETAMINOPHEN 325 MG TABLET (FP) PO SCH (09:59)
[2024-05-02] MEDS ORDERED: IBUPROFEN 600 MG TABLET (FP) PO SCH (14:00)
[2024-05-04 07:21] LABS: BASO % 0.4 % (0-2.0); EOS % 1.7 % (0-4.5); HEMATOCRIT 28.2 % (32.4-45.2); HEMOGLOBIN 9.2 GM/dL (10.7-15.3); LYMPH % 23.8 % (8-40); MCH 26.5 pg (25.7-33.7); MCHC 32.7 g/dl (32.0-36.0); MEAN PLT VOLUME 8.4 fl (7.5-11.1); MONO % 6.4 % (3.8-10.2); NEUT % 67.7 % (42.8-82.8); PLATELET COUNT 180 10^3/uL (134-434); RBC 3.49 M/mm3 (3.60-5.2); WHITE BLOOD COUNT 4.2 K/mm3 (4.0-10.0)
[2024-05-04 10:09] VITALS: BP 125/85; PULSE 77; RESP 18; TEMP 98.4
== END 2024-05-04 11:55 | disposition home or self-care (01) | DRG 788 ==
LOC: JDEL 18:49 → JLDR 20:00 → J3W 05-01 12:00
PROVIDERS: ADMIT Obstetrics & Gynecology; ATTEND Obstetrics & Gynecology
PROC: 10D00Z1 Extraction of Products of Conception, Low, Open Approach (ICD-10-PCS; principal; 2024-05-01)
PROC: 3E0334Z Introduction of Serum, Toxoid and Vaccine into Peripheral Vein, Percutaneous Approach (ICD-10-PCS; 2024-05-01)
DX: O36.8330 Maternal care for abnormalities of the fetal heart rate or rhythm, third trimester, not applicable or unspecified (principal); O24.424 Gestational diabetes mellitus in childbirth, insulin controlled; O26.893 Other specified pregnancy related conditions, third trimester; Z67.91 Unspecified blood type, Rh negative; Z3A.38 38 weeks gestation of pregnancy; Z37.0 Single live birth
CPT/HCPCS: 36415; 36600; 80048; 82803; 82962; 85025; 85461; 85610; 85730; 86780; 86850; 86870; 86880; 86900; 86901; 86902; 87389; 88307-TC; 96372; J0131; J2790